=== PATIENT | female | born 1985 | race Caucasian/White ===

== ENCOUNTER 2016-03-10 14:53 | Emergency (ER) | payer MEDICAID ==
[~2016-03-10] VITALS: Ht 157.5 cm; Wt 56.7 kg
[~2016-03-10 14:53] MED LIST: ATIVAN2 M1 PO; CHLORPROMAZINE25 M1 PO; CIPRO500 MG; CLINDAMYCIN300 M1 PO; DOC-Q-LACE100 M1; DOXYCYCLINE100 M3 PO; EFFEXOR75 M1 PO; FENTANYL TD; FLAGYL250 M1 PO; HEMORRHOID OINTMENT; HYDROCORTISO; KEFLEX500 M1 PO; LEVAQUIN500 MG PO; NORCO; PENICILLIN; PHENERGAN12.5 M1 PO; PREDNISONE20 MG PO; SOMA350 M1 PO; SOMA350 MG PO; SYMBICORT1 AE1 IH; TERCONAZOLE; TRAMADOL HCL50 MG PO; VICODIN 5/500 M1 TAB PO; XANAX; XANAX0.5 M1 PO; XANAX1 MG PO; XANAX2 M1 PO; XANAX2 MG PO
[2016-03-10 16:30] VITALS: BP 113/48
--- NOTE | 2016-03-10 19:05 | NUR ---
PATIENT TO BED 04.
--- NOTE | 2016-03-10 19:29 | NUR ---
PATIENT PRESENTS TO ED WITH ANXIETY . PT STATES SHE HAS HAD ANXIETY WITH NAUSEA FOR THE PAST 3 DAYS. PT REPORTS NO PAIN AT THIS TIME . DENIES V/D; SKIN IS PINK/WARM/DRY; AAOX4 WITH EVEN AND STEADY GAIT; LUNGS CLEAR BL; HR EVEN AND REGULAR; PT DENIES ANY FEVER, CP, SOB, OR COUGH AT THIS TIME; PATIENT STATES PAIN OF 0/10 AT THIS TIME; VSS; PATIENT POSITIONED FOR COMFORT; HOB ELEVATED; BEDRAILS UP X2; BED DOWN. ER MD MADE AWARE OF PT STATUS.
[2016-03-10] MEDS ORDERED: LORazepam 2 MG/ML VIAL IM ONE (19:45)
--- NOTE | 2016-03-10 20:37 | NUR ---
Patient appears to be resting comfortably in bed. Vital Signs within normal limits. Respirations even and unlabored.
[2016-03-10 21:42] VITALS: BP 117/70
[2016-05-28] MEDS ORDERED: ATIVAN1 MG PO (22:08)
[2016-05-31] MEDS ORDERED: CYMBALTA30 MG PO (14:15)
[2016-05-31] MEDS ORDERED: ATARAX HCL25 MG PO ×2 (14:15→14:29)
[2016-05-31] MEDS ORDERED: ATIVAN1 MG PO (14:15)
== END 2016-03-10 21:43 | disposition home or self-care (01) ==
LOC: MED 14:59
DX: F41.9 Anxiety disorder, unspecified (principal); J45.909 Unspecified asthma, uncomplicated; Z88.2 Allergy status to sulfonamides; Z88.5 Allergy status to narcotic agent; Z88.6 Allergy status to analgesic agent; Z88.8 Allergy status to other drugs, medicaments and biological substances
CPT/HCPCS: 96372; 99284; J2060

== ENCOUNTER 2016-05-28 17:58 | Inpatient (IN) | payer MEDICAID ==
[~2016-05-28] VITALS: Ht 157.5 cm; Wt 50.4 kg
[2016-05-28 18:07] VITALS: BP 109/71
[2016-05-28] MEDS ORDERED: NACL 0.9% 1,000 ML IV ONE ×2 (18:20→19:45)
[2016-05-28] MEDS ORDERED: LORazepam 2 MG/ML VIAL IVP ONE ×2 (18:35→19:45)
[2016-05-28] MEDS ORDERED: LORazepam 2 MG/ML VIAL ONE (18:40)
--- NOTE | 2016-05-28 18:44 | NUR ---
PATIENT IS A 31 YO FEMALE BIB SELF FOR ANXIETY AND HX OF SEIZURES. AWAKE AND ALERT ON ARRIVAL HAD WITNESSED SEIZURE IN LOBBY SLIPPED TO FLOOR NO OBVIOUS INJURY. VERY SHORT POST ICTAL SEIZURE ARE WHOLE BODY STIFFENING AND THEN RELAXING. TAKEND TO BED 5 VIA WHEELCHAIR AND IV ESTABLISHED GIVEN IV ATIVAN.
[2016-05-28 18:45] LABS: BASOPHILS # (AUTO) 0.2 K/uL (0.00-0.22); BASOPHILS % (AUTO) 1.6 % (0.0-2.0); EOSINOPHILS # (AUTO) 0.4 K/uL (0-0.4); EOSINOPHILS % (AUTO) 4.2 % (0.0-4.0); HEMATOCRIT 43.4 % (36-48); HEMOGLOBIN 14.1 g/dL (12.0-16.0); LYMPHOCYTES # (AUTO) 4.1 K/uL (2.5-16.5); LYMPHOCYTES % (AUTO) 39.3 % (20.5-51.1); MEAN CORPUSCULAR HEMOGLOBIN 29 pg (27-31); MEAN CORPUSCULAR HGB CONC 33 g/dL (33-37); MEAN CORPUSCULAR VOLUME 89 fL (80-94); MONOCYTES # (AUTO) 0.7 K/uL (0.8-1.0); MONOCYTES % (AUTO) 6.9 % (1.7-9.3); NEUTROPHILS # (AUTO) 4.9 K/uL (1.8-7.7); PLATELET COUNT (AUTO) 272 K/uL (140-450); RED BLOOD CELL COUNT(AUTO) 4.86 MIL/uL (4.20-5.40); RED CELL DISTRIBUTION WIDTH 13.5 % (11.6-13.7); WHITE BLOOD COUNT (AUTO) 10.3 K/uL (4.8-10.8)
[2016-05-28 18:57] LABS: ANION GAP 24.5 (8-16); CALCIUM 9.5 mg/dL (8.5-10.1); CARBON DIOXIDE 19.2 mmol/L (21-32); CREATININE 1.2 mg/dL (0.6-1.3); POTASSIUM 3.7 mmol/L (3.5-5.1)
--- NOTE | 2016-05-28 19:00 | NUR ---
Dr. Briones evaluating patient at bedside.
[2016-05-28 19:01] LABS: PARTIAL THROMBOPLASTIN TIME 22.7 secs (22-35.6); PROTHROMBIN TIME 9.9 secs (10.8-13.4)
[2016-05-28 19:03] LABS: ALBUMIN 4.7 g/dL (3.4-5.0); BILIRUBIN,DIRECT 0.1 mg/dL (0.0-0.3); TOTAL BILIRUBIN 0.6 mg/dL (0.0-1.0); TOTAL PROTEIN, SERUM 8.3 g/dL (6.4-8.2)
--- NOTE | 2016-05-28 19:09 | NUR ---
RECEIVED REPORT FROM VANESSA CAMACHO. CAME IN DUE TO ANXIETY AND HAD EPISODE OF SEIZURE IN ER LOBBY. PERIPHERAL IV ON RIGHT ARM G20 RUNNING IVF OF NS WIDE OPEN.
--- NOTE | 2016-05-28 19:09 | NUR ---
GAVE REPORT TO JANICE LARRY
[2016-05-28 19:51] LABS: FREE T4 (FREE THYROXINE) 1.11 ng/dL (0.76-1.46); THYROID STIMULATING HORMONE 1.81 uIU/mL (0.34-3.76)
[2016-05-28 19:52] LABS: ACETAMINOPHEN < 0.5 ug/ml (10-30); SALICYLATE < 2.8 mg/dL (2.8-20.0)
--- NOTE | 2016-05-28 21:35 | NUR ---
PT TAKEN TO CT
--- NOTE | 2016-05-28 21:35 | NUR ---
PATIENT TAKEN TO CT BY THE PERSONAL CARE HOME ADMINISTRATOR PER LISSY.
--- NOTE | 2016-05-28 21:48 | NUR ---
CAME BACK FROM CT.
--- NOTE | 2016-05-28 21:51 | NUR ---
COMPLAINED OF HEADACHE, DR. IZAGUIRRE INFORMED.
[2016-05-28] MEDS ORDERED: LORA-476 PO (22:08)
[2016-05-28 22:15] LABS: APPEARANCE,URINE CLEAR (CLEAR); BILIRUBIN,URINE NEGATIVE (NEGATIVE); BLOOD, URINE NEGATIVE (NEGATIVE); COLOR,URINE YELLOW (YELLOW); LEUKOCYTE ESTERASE ,URINE NEGATIVE (NEGATIVE); NITRITE, URINE NEGATIVE (NEGATIVE); PH,URINE 6.5 (5.0-9.0); PROTEIN,URINE NEGATIVE (NEGATIVE); UGLUCOSE NEGATIVE (NEGATIVE); UROBILINOGEN,URINE 0.2 EU/dL (0.2 - 1)
[2016-05-28 22:26] LABS: BACTERIA,URINE FEW /HPF (None Seen); MUCUS,URINE 1+ /LPF (None Seen); RBC,URINE 0-3 /HPF (0-5); WBC,URINE 0-3 /HPF (0-5)
[2016-05-28 22:28] LABS: AMPHETAMINE, URINE NEG. ng/ml (NEG <=1000); BARBITURATE, URINE NEG. ng/ml (NEG <=200); BENZODIAZEPINE, URINE NEG. ng/mL (NEG <=200); CANNABINOID, URINE POS. ng/mL (NEG <=50); COCAINE, URINE NEG. ng/mL (NEG <=300); OPIATE, URINE NEG. ng/mL (NEG <=2000); PHENCYCLIDINE SCREEN,URINE NEG. ng/mL (NEG <=25)
--- NOTE | 2016-05-28 22:50 | NUR ---
Patient will be admitted to care of DR. BUNDY. Admited to TELEMETRY. Will go to room 117. Belongings list completed. Report to TRAESIS.
--- NOTE | 2016-05-28 22:55 | NUR ---
ADMITTED A PT FROM ER. TRANSPORTED VIA GURNEY, ACCOMPANIED BY , ER NURSE AND EMT. PT IS AAOX4, DENIES PAIN. ON ROOM AIR, NO S/S OF RESPIRATORY DISTRESS/DISCOMFORT NOTED. HAS NO EPISODES OF SEIZURE AT THIS TIME. SKIN CHECKING DONE, NO SKIN ISSUES. ID BAND UPDATED. ORIENTATION TO ROOM DONE. MRSA SWABBING DONE. V/S CHECKED. PLAN OF CARE DISCUSSED, VERBALIZED UNDERSTANDING. SAFETY MEASURES INITIATED, CALL LIGHT WITHIN REACH. WILL CONTINUE TO MONITOR.
[2016-05-28] MEDS ORDERED: ACETAMINOPHEN 325 MG TAB PO PRN (23:05)
--- NOTE | 2016-05-28 23:25 | NUR ---
EPISODES OF SEIZURES NOTED TO THE PT, AT BEDSIDE. INTERVAL OF EVERY 10-15 MINS, DURATION OF 15-30 SECONDS. SEIZURE PRECAUTIONS APPLIED AND SAFETY MEASURES INITIATED. NO INJURY NOTED AFTER THE SEIZURE.
[2016-05-28 23:39] LABS: CHOL/HDL RATIO 1.8 (1-4.5)
[2016-05-28] MEDS: NACL 0.9% 1,000 ML IV SCH (23:57)
[2016-05-28] MEDS: LORazepam 2 MG/ML VIAL IVP PRN (23:59)
[2016-05-29] VITALS (8 sets, daily range): BP systolic 88–104; BP diastolic 56–82
--- NOTE | 2016-05-29 | NUR ---
ORDERED ATIVAN WAS GIVEN. PROVIDED DRUG INFO, BENEFITS AND S/E. VERBALIZED UNDERSTANDING.
[2016-05-29] MEDS: HYDROcodone/APAP 5/325 MG 1 TAB TAB PO PRN (02:22)
--- NOTE | 2016-05-29 03:07 | NUR ---
EYES CLOSED, RESTING QUIETLY, BREATHING EVEN AND UNLABORED. NO SOB NOTED. CALL LIGHT WITHIN REACH.
[2016-05-29] MEDS: LORazepam 1 MG TAB PO SCH ×3 (04:26→21:52)
[2016-05-29] MEDS: LORazepam 2 MG/ML VIAL IVP PRN ×5 (05:18→21:53)
--- NOTE | 2016-05-29 05:27 | NUR ---
EPISODES OF SEIZURE NOTED TO THE PT. PRN ATIVAN WAS GIVEN.
[2016-05-29 06:37] LABS: BASOPHILS # (AUTO) 0.1 K/uL (0.00-0.22); BASOPHILS % (AUTO) 2.3 % (0.0-2.0); EOSINOPHILS # (AUTO) 0.3 K/uL (0-0.4); EOSINOPHILS % (AUTO) 4.9 % (0.0-4.0); HEMATOCRIT 31.1 % (36-48); HEMOGLOBIN 10.4 g/dL (12.0-16.0); LYMPHOCYTES # (AUTO) 2.4 K/uL (2.5-16.5); LYMPHOCYTES % (AUTO) 37.2 % (20.5-51.1); MEAN CORPUSCULAR HEMOGLOBIN 30 pg (27-31); MEAN CORPUSCULAR HGB CONC 33 g/dL (33-37); MEAN CORPUSCULAR VOLUME 89 fL (80-94); MONOCYTES # (AUTO) 0.4 K/uL (0.8-1.0); MONOCYTES % (AUTO) 6.4 % (1.7-9.3); NEUTROPHILS # (AUTO) 3.1 K/uL (1.8-7.7); NEUTROPHILS % (AUTO) 49.2 % (42.2-75.2); PLATELET COUNT (AUTO) 162 K/uL (140-450); RED CELL DISTRIBUTION WIDTH 13.6 % (11.6-13.7); WHITE BLOOD COUNT (AUTO) 6.3 K/uL (4.8-10.8)
[2016-05-29 06:54] LABS: CALCIUM 7.8 mg/dL (8.5-10.1); CARBON DIOXIDE 21.7 mmol/L (21-32); CREATININE 0.6 mg/dL (0.6-1.3); POTASSIUM 3.7 mmol/L (3.5-5.1)
[2016-05-29 07:04] LABS: ALCOHOL, BLOOD < 3 mg/dL (<3); MAGNESIUM 1.7 mg/dL (1.8-2.4)
--- NOTE | 2016-05-29 07:15 | NUR ---
ENDORSED REPORT TO DAY SHIFT NURSE FOR CONTINUITY OF CARE. PT IS IN STABLE CONDITION.
--- NOTE | 2016-05-29 07:16 | NUR ---
RECEIVED PT ASLEEP BUT EASILY AROUSABLE, WITH AT BEDSIDE, AAOX4 WITH NO S.S OF RESPIRATORY DISTRESS, WITH IV ACCESS ON RIGHT AC 20G INFUSING FLUIDS WELL, SKIN IS INTACT. DISCUSSED PLAN OF CARE, PT VERBALIZED UNDERSTANDING. SAFETY PRECAUTIONS ENFORCED. CALL LIGHT WITHIN REACH, WILL CONTINUE TO MONITOR.
[2016-05-29] MEDS: MULTIVITAMIN 1 TAB PO SCH (08:32)
[2016-05-29] MEDS: FOLIC ACID 1 MG TAB PO SCH (08:32)
[2016-05-29] MEDS: DOCUSATE SODIUM 100 MG GELCAP PO SCH (08:32)
[2016-05-29] MEDS: THIAMINE 100 MG TAB PO SCH (08:32)
--- NOTE | 2016-05-29 08:35 | NUR ---
DUE MEDS GIVEN, PT TOLERATED WELL.
--- NOTE | 2016-05-29 10:25 | NUR ---
DR BUNDY AT BEDSIDE
[2016-05-29] MEDS: NACL 0.9% 1,000 ML IV SCH (11:42)
--- NOTE | 2016-05-29 12:10 | NUR ---
STUDENT REPORTED THAT PT IS HAVING SEIZURE. WENT TO BEDSIDE WITH DR BAR, AWAKENED PT AND PT WAS FRIGHTENED UPON AWAKENING. PT WAS ABLE TO CONVERSATE WITH DR BAR, STATED THAT SHE COULD NOT REMEMBER WHAT HAPPENED. NO S/S OF RESPIRATORY DISTRESS/ WILL CONTINUE TO MONITOR
--- NOTE | 2016-05-29 12:40 | NUR ---
PT EATING, HAS GOOD APPETITE. CALL LIGHT WITHIN REACH, WILL CONTINUE TO MONITOR
[2016-05-29] MEDS ORDERED: MAG SULF 2000 MG/WATER PREMIX 50 ML IV ONE (12:50)
--- NOTE | 2016-05-29 14:01 | NUR ---
PT HEARD MOANING, FOUND WITH HANDS STIFF, AWAKENED PT. PT WAS STARTLED AND SAID SHE IS OKAY AND WENT BACK TO SLEEP. SPO2 AT 99%. WILL CONTINUE TO MONITOR.
--- NOTE | 2016-05-29 16:40 | NUR ---
PT ASLEEP WITH AT BEDSIDE. NO S/S OF DISTRESS. WILL CONTINUE TO MONITOR.
[2016-05-29] MEDS: DULoxetine 30 MG CAPDR PO SCH (17:38)
--- NOTE | 2016-05-29 18:10 | NUR ---
DR DASILVA AT BEDSIDE CYTOPATHOLOGY TECHNOLOGIST FOR DR. GRIDER
--- NOTE | 2016-05-29 18:20 | NUR ---
PT AWAKE WATCHING TV, JUST ATE DINNER, HAS GOOD APPETITE. NO COMPLAINTS AT THIS TIME. WILL CONTINUE TO MONITOR.
--- NOTE | 2016-05-29 19:19 | NUR ---
ENDORSED PT TO PATIENT SITTER NURSE IN STABLE CONDITION FOR CONTINUITY OF CARE
--- NOTE | 2016-05-29 19:20 | NUR ---
RECEIVED REPORT FROM MORNING SHIFT NURSE AT BEDSIDE, PT IS AAOX4, ABLE TO FOLLOW COMMANDS AND MAKE NEEDS KNOWN. DENIES PAIN, NO SOB/DISTRESS NOTED, BREATHING EVEN AND UNLABORED, ON RA. TELE MONITOR WITH SR. SOFT ABD WITH ACTIVE BOWEL SOUNDS. IV SITE TO RIGHT AC RUNNING WITH NC. AFEBRILE, SKIN IS INTACT, WARM AND DRY TO TOUCH. ABLE TO MOVE ALL EXTREMITIES, AMBULATE WITH ASSIST. EXPLAINED POC TO PT, PT VERBALIZED UNDERSTANDING, SAFETY MEASURE MAINTAINED, SEIZURE PRECAUTION MAINTAINED, CALL LIGHT WITHIN REACH, WILL CONTINUE TO MONITOR.
--- NOTE | 2016-05-29 21:00 | NUR ---
SCHEDULED MEDICATION GIVEN, PT TOLERATED WELL.
--- NOTE | 2016-05-29 21:50 | NUR ---
PT HAD A SEIZURE EPISODE WITH BLACKOUT AND STIFFNESS OF BODY FOR 30SEC, ATIVAN GIVEN, SYMPTOMS REDUCED.
[2016-05-30] VITALS: BP 83/59
--- NOTE | 2016-05-30 | NUR ---
PT C/O ANXIETY, BP 83/59, HR 81, O2 SAT 92%. EDUCATED AND WILL CONTINUE TO MONITOR. Addendum: 05/30/16 at 0048 by Tommie Wiseman RN PT ALSO C/O HEADACHE, AND DID NOT SLEEP WELL FOR 2 DAYS, DR. GREGOR ORTEGA, WAITING FOR CALL BACK.
--- NOTE | 2016-05-30 01:20 | NUR ---
DR. BUNDY CALLED BACK AND ORDERED NEW MEDICATION FOR PT, EDUCATED AND MEDICATED. WILL CONTINUE TO MONITOR.
[2016-05-30] MEDS: hydrOXYzine HCL 25 MG TAB PO PRN (01:26)
--- NOTE | 2016-05-30 02:10 | NUR ---
PT IS NAUSEA AND HAD VOMITED SMALL AMOUNT OF CLEAR EMESIS. AFTER THAT HAD A SEIZURE EPISODE WITH STIFFNESS OF BODY FOR 30 SEC. ZOFRAN GIVEN AND ATIVAN GIVEN, SEIZURE ACTIVITY REDUCED. VSS.
[2016-05-30] MEDS: LORazepam 2 MG/ML VIAL IVP PRN ×5 (02:15→23:52)
[2016-05-30] MEDS: ONDANSETRON 4 MG/2 ML VIAL IVP PRN ×2 (02:16→12:49)
[2016-05-30 04:00] VITALS: BP 96/61
--- NOTE | 2016-05-30 04:00 | NUR ---
PT IS ASLEEP IN BED, VSS.
[2016-05-30] MEDS: LORazepam 1 MG TAB PO SCH ×3 (05:00→21:26)
[2016-05-30 06:03] LABS: BASOPHILS # (AUTO) 0.1 K/uL (0.00-0.22); BASOPHILS % (AUTO) 1.7 % (0.0-2.0); EOSINOPHILS # (AUTO) 0.3 K/uL (0-0.4); EOSINOPHILS % (AUTO) 5.6 % (0.0-4.0); HEMATOCRIT 35.3 % (36-48); HEMOGLOBIN 11.8 g/dL (12.0-16.0); LYMPHOCYTES # (AUTO) 1.8 K/uL (2.5-16.5); LYMPHOCYTES % (AUTO) 31.8 % (20.5-51.1); MEAN CORPUSCULAR HEMOGLOBIN 30 pg (27-31); MEAN CORPUSCULAR HGB CONC 33 g/dL (33-37); MEAN CORPUSCULAR VOLUME 89 fL (80-94); MONOCYTES # (AUTO) 0.4 K/uL (0.8-1.0); MONOCYTES % (AUTO) 6.2 % (1.7-9.3); NEUTROPHILS # (AUTO) 3.1 K/uL (1.8-7.7); NEUTROPHILS % (AUTO) 54.7 % (42.2-75.2); PLATELET COUNT (AUTO) 178 K/uL (140-450); RED BLOOD CELL COUNT(AUTO) 3.98 MIL/uL (4.20-5.40); RED CELL DISTRIBUTION WIDTH 13.6 % (11.6-13.7); WHITE BLOOD COUNT (AUTO) 5.7 K/uL (4.8-10.8)
[2016-05-30 06:15] LABS: ANION GAP 13.4 (8-16); CALCIUM 8.5 mg/dL (8.5-10.1); CARBON DIOXIDE 24.6 mmol/L (21-32); CREATININE 0.7 mg/dL (0.6-1.3)
[2016-05-30 06:41] LABS: MAGNESIUM 2.1 mg/dL (1.8-2.4); PHOSPHORUS 4.2 mg/dL (2.5-4.9)
--- NOTE | 2016-05-30 07:10 | NUR ---
PT IS RESTING IN BED, NO CHANGE OF CONDITION AT THIS TIME, REPORT GIVEN TO MORNING SHIFT NURSE FOR CONTINUE OF CARE.
--- NOTE | 2016-05-30 07:19 | NUR ---
REPORT RECEIVED FROM SUPERINTENDENT MENAGERIE RN, PT RESTING QUIETLY IN BED WITH BOYFRIEND, RESP EVEN UNLABORED IN NAD, CALL ABREU WITHIN REACH, SZ PRECAUTIONS IN PLACE, PT ON SQUADRON WORKER, ALL OTHER SAFETY MEASURES MET, WILL CONTINUE TO MONITOR
[2016-05-30 08:00] VITALS: BP 92/53
--- NOTE | 2016-05-30 08:01 | NUR ---
PATIENT HAS BEEN SCREENED AND CATEGORIZED LOW NUTRITION RISK. PATIENT WILL BE SEEN WITHIN 7 DAYS OF ADMISSION. 06/04/[address]
[2016-05-30] MEDS: FOLIC ACID 1 MG TAB PO SCH (08:39)
[2016-05-30] MEDS: MULTIVITAMIN 1 TAB PO SCH (08:39)
[2016-05-30] MEDS: THIAMINE 100 MG TAB PO SCH (08:39)
[2016-05-30] MEDS: DOCUSATE SODIUM 100 MG GELCAP PO SCH (08:40)
[2016-05-30] MEDS: DULoxetine 30 MG CAPDR PO SCH (08:40)
--- NOTE | 2016-05-30 09:03 | NUR ---
PT APPEARS ANXIOUS WITH RAPID RR, STATES "I'M HAVING ANXIETY ATTACKS, I NEED ATIVAN", PT BP LOW 92/53, TRIED RELAXATION AND RESPIRATORY TECHNIQUES WITHOUT IMPROVEMENT, OK'D BY DR PINEDA TO GIVE PRN 1MG ATIVAN WITH BP OF 99/58 AT THIS TIME, BOYFRIEND AT BEDSIDE, CALL ABREU WITHIN REACH, SZ PRECAUTION IN PLACE, ALL OTHER SAFETY MEASURES MET, WILL CONTINUE TO MONITOR
--- NOTE | 2016-05-30 10:04 | NUR ---
PT RESTING QUIETLY IN BED, CALMLY STATES SHE "FEELS BETTER", REMAINS ON GUIDEMAN, SZ PRECAUTION, CALL ABREU WITHIN REACH, ALL SAFETY MEASURES MET, BOYFRIEND AT BEDSIDE, WILL CONTINUE TO MONITOR.
[2016-05-30] MEDS: NACL 0.9% 1,000 ML IV SCH (11:31)
--- NOTE | 2016-05-30 11:50 | NUR ---
PT RESTING WITH EYES CLOSED, RESP EVEN UNLABORED IN NAD, COLOR WNL, PT AROUSES TO VOICE, DENIES PAIN PAIN OR DISCOMFORT, CALM COOPERATIVE, BOYFRIEND REMAINS AT BEDSIDE, CALL ABREU AT BEDSIDE, SZ PRECAUTION, ALL SAFETY MEASURES MET, WILL CONTINUE TO MONITOR
[2016-05-30 12:00] VITALS: BP 96/60
--- NOTE | 2016-05-30 12:50 | NUR ---
PT SITTING UP FOR LUNCH, NOW AWAKE ALERT, SPEAKS CLEARLY AND PLEASANTLY, MAKES EYE CONTACT WITH SMILES, C/O NAUSEA, MEDICATED WITH PRN ZOFRAN, SCHEDULED PO ATIVAN GIVEN, WILL CONTINUE TO MONITOR
--- NOTE | 2016-05-30 15:04 | NUR ---
PT SITTING UP IN BED RESTING QUIETLY, RESP EVEN UNLABORED, SKIN COLOR WNL, DENIES ANY PAIN OR DISCOMFORT, NO IMMEDIATE NEEDS VOICED, BOYFRIEND AT BEDSIDE, REMAINS ON CARDISC MONITOR, SZ PRECAUTION CONTINUES, ALL SAFETY MEASURES ENSURED, WILL CONTINUE TO MONITOR
--- NOTE | 2016-05-30 15:48 | NUR ---
PT NOW WITHDRAWN, CURLED UP IN BED, BODY STIFF, STATES SHE IS HAVING ANXIETY ATTACK, PRN ATIVAN GIVEN AT THIS TIME, BP 105/68 NOW, BOYFRIEND REMAINS AT BEDSIDE, SZ PRECAUTION, CARDIAC MONITORING CONTINUES, ALL SAFETY MEASURES ENSURED, WILL CONTINUE TO MONITOR
[2016-05-30 16:00] VITALS: BP 105/68
--- NOTE | 2016-05-30 16:56 | NUR ---
PT AWAKE SITTING UP IN BED QUIETLY IN NAD, RESP EVEN UNLABORED, APPEARS COMFORTABLE, DENIES ANY IMMEDIATE NEEDS, CALL ABREU WITHIN REACH, SZ PRECAUTION,CARDIAC MONITORING CONTINUES, ALL SAFETY MEASURES IN PLACE, WILL CONTINUE TO MONITOR.
--- NOTE | 2016-05-30 18:00 | NUR ---
PT SITTING UP IN BED EATING DINNER, STATES "I FEEL BETTER", SMILING, IVF INFUSING, SITE CLEAR, BOYFRIEND AT BEDSIDE, SZ PRECAUTION, CARCDIAC MONITOR CONTINUES, ALL SAFETY MEASURES IN PLACE, WILL CONTINUE TO MONITOR
--- NOTE | 2016-05-30 19:24 | NUR ---
REPORT GIVEN TO PLASTIC PARTS FABRICATOR TRIMMER RN, PT REMAINS IN STABLE CONDITION.
--- NOTE | 2016-05-30 19:25 | NUR ---
RECEIVED REPORT FROM DAY RN FOR CONTINUITY OF CARE. PATIENT IS A&OX4, DISCUSSED PLAN OF CARE WITH PATIENT AND FAMILY MEMBER AT BEDSIDE, VERBALIZED UNDERSTANDING. SHIFT ASSESSMENT DONE, VS TAKEN, STABLE. NO S/S OF RESPIRATORY DISTRESS NOTED ON ROOM AIR. PATIENT DENIES PAIN AT THIS TIME. IV TO RT AC 20 GAUGE PATENT AND INFUSING FLUIDS WELL. SAFETY/SEIZURE PRECAUTIONS ENFORCED. CALL LIGHT WITHIN REACH. WILL CONTINUE TO MONITOR.
[2016-05-30 20:00] VITALS: BP 101/56
--- NOTE | 2016-05-30 20:41 | NUR ---
PT C/O ANXIETY, HAVING PANIC ATTACKS, VITAL SIGNS STABLE. ADMINISTERED ATIVAN PER MD ORDER. WILL CONTINUE TO MONITOR.
[2016-05-30] MEDS: HYDROcodone/APAP 5/325 MG 1 TAB TAB PO PRN (22:05)
--- NOTE | 2016-05-30 22:05 | NUR ---
PT C/O HEADACHE, MEDICATED PER MD ORDER. CALL LIGHT WITHIN REACH. WILL CONTINUE TO MONITOR.
--- NOTE | 2016-05-30 23:14 | NUR ---
NEW IV LINE INSERTION TO LT FA 22 GAUGE PATENT AND INFUSING FLUIDS WELL. VS TAKEN, STABLE.
[2016-05-31] VITALS: BP 95/61
[2016-05-31] MEDS: hydrOXYzine HCL 25 MG TAB PO PRN (00:49)
[2016-05-31] MEDS: ONDANSETRON 4 MG/2 ML VIAL IVP PRN ×3 (00:53→12:33)
--- NOTE | 2016-05-31 02:02 | NUR ---
SPOKE TO PATIENTS , GIVEN UPDATE. PT IS ASLEEP AT THIS TIME. NO S/S OF DISTRESS NOTED.
[2016-05-31] MEDS: LORazepam 2 MG/ML VIAL IVP PRN ×2 (03:35→08:11)
--- NOTE | 2016-05-31 03:35 | NUR ---
VS TAKEN, STABLE. PT HAVING ANXIETY ATTACKS, ADMINISTERED ATIVAN PER MD ORDER. WILL CONTINUE TO MONITOR.
[2016-05-31 04:00] VITALS: BP 95/68
[2016-05-31] MEDS: LORazepam 1 MG TAB PO SCH ×2 (05:07→12:33)
--- NOTE | 2016-05-31 05:07 | NUR ---
DUE MEDICATION ADMINISTERED, TOLERATED WELL. NO S/S OF DISTRESS NOTED.
[2016-05-31 06:51] LABS: BASOPHILS # (AUTO) 0.1 K/uL (0.00-0.22); BASOPHILS % (AUTO) 1.6 % (0.0-2.0); EOSINOPHILS # (AUTO) 0.3 K/uL (0-0.4); EOSINOPHILS % (AUTO) 4.7 % (0.0-4.0); HEMATOCRIT 32.7 % (36-48); HEMOGLOBIN 10.9 g/dL (12.0-16.0); LYMPHOCYTES # (AUTO) 2.2 K/uL (2.5-16.5); LYMPHOCYTES % (AUTO) 38.1 % (20.5-51.1); MEAN CORPUSCULAR HEMOGLOBIN 30 pg (27-31); MEAN CORPUSCULAR HGB CONC 33 g/dL (33-37); MEAN CORPUSCULAR VOLUME 89 fL (80-94); MONOCYTES # (AUTO) 0.4 K/uL (0.8-1.0); MONOCYTES % (AUTO) 6.5 % (1.7-9.3); NEUTROPHILS # (AUTO) 2.8 K/uL (1.8-7.7); NEUTROPHILS % (AUTO) 49.1 % (42.2-75.2); PLATELET COUNT (AUTO) 166 K/uL (140-450); RED BLOOD CELL COUNT(AUTO) 3.67 MIL/uL (4.20-5.40); RED CELL DISTRIBUTION WIDTH 13.3 % (11.6-13.7); WHITE BLOOD COUNT (AUTO) 5.8 K/uL (4.8-10.8)
--- NOTE | 2016-05-31 07:15 | NUR ---
ENDORSED PATIENT TO DAY RN FOR CONTINUITY OF CARE. PATIENT IS IN STABLE CONDITION.
[2016-05-31 07:16] LABS: ANION GAP 11.7 (8-16); CALCIUM 8.3 mg/dL (8.5-10.1); CARBON DIOXIDE 25.1 mmol/L (21-32); CREATININE 0.8 mg/dL (0.6-1.3); POTASSIUM 3.8 mmol/L (3.5-5.1)
--- NOTE | 2016-05-31 07:18 | NUR ---
REPORT RECEIVED FROM COMMUNICATIONS EXECUTIVE RN, PT AWAKE RESTING QUIETLY, RESP EVEN UNLABORED IN NAD, SKIN COLOR WNL, IVF INFUSING WELL, SITE CLEAR, NO C/O PAIN, PT REQUESTS ANXIETY MEDS, WILL MEDICATE APPROPRIATE, CALL ABREU WITHIN REACH, BED LOCKED IN LOW POSITION, SIDE RAILS UP X2, WILL CONTINUE TO MONITOR
[2016-05-31 07:29] LABS: MAGNESIUM 1.9 mg/dL (1.8-2.4)
[2016-05-31 08:00] VITALS: BP 98/59
[2016-05-31] MEDS: MULTIVITAMIN 1 TAB PO SCH (08:10)
[2016-05-31] MEDS: FOLIC ACID 1 MG TAB PO SCH (08:10)
[2016-05-31] MEDS: THIAMINE 100 MG TAB PO SCH (08:10)
[2016-05-31] MEDS: DOCUSATE SODIUM 100 MG GELCAP PO SCH (08:10)
[2016-05-31] MEDS: DULoxetine 30 MG CAPDR PO SCH (08:11)
--- NOTE | 2016-05-31 10:08 | NUR ---
PT RESTING IN BED. NO S/S OF ACUTE DISTRESS. PT DENIES PAIN. CALL LIGHT WITHIN REACH. SAFETY MEASURES ENSURED. WILL CONTINUE TO MONITOR.
[2016-05-31] MEDS: NACL 0.9% 1,000 ML IV SCH (11:31)
[2016-05-31 12:00] VITALS: BP 102/64
--- NOTE | 2016-05-31 13:50 | NUR ---
PT RESTING IN BED. NO S/S OF ACUTE DISTRESS. PT DENIES PAIN. CALL LIGHT WITHIN REACH. SAFETY MEASURES ENSURED. WILL CONTINUE TO MONITOR.
[2016-05-31] MEDS ORDERED: LORazepam 0.5 MG TAB PO SCH (14:10)
[2016-05-31] MEDS ORDERED: DULO30EC PO (14:15)
[2016-05-31] MEDS ORDERED: ATA25 PO ×2 (14:15→14:29)
[2016-05-31] MEDS ORDERED: LORA-476 PO (14:15)
[2016-05-31 14:35] VITALS: BP 102/64
--- NOTE | 2016-05-31 16:33 | NUR ---
DISCHARGE INSTRUCTION AND PRESCRIPTIONS GIVEN AND EXPLAINED TO PT AND , THEY BOTH EXPRESSED FULL UNDERSTANDING, IV DC'D, CATH TIP INTACT, BLEEDING CONTROLLED, PT SMILING CONVERSING PLEASANTLY, APPEARS COMFORTABLE, WITH GOOD SPIRITS, AMBULATES WITH STEADY GAIT, DC HOME NOW WITH .
[2016-05-31 16:38] VITALS: BP 100/60
== END 2016-05-31 16:30 | disposition home or self-care (01) | DRG 52 ==
LOC: MED 18:00 → MTU 22:14
PROVIDERS: ADMIT Student in an Organized Health Care Education/Training Program; ATTEND Student in an Organized Health Care Education/Training Program
DX: G92 Toxic encephalopathy (principal); E83.42 Hypomagnesemia; F41.0 Panic disorder [episodic paroxysmal anxiety]; F45.8 Other somatoform disorders; F41.1 Generalized anxiety disorder; F44.5 Conversion disorder with seizures or convulsions; D64.9 Anemia, unspecified; F12.90 Cannabis use, unspecified, uncomplicated; F17.210 Nicotine dependence, cigarettes, uncomplicated; Z72.89 Other problems related to lifestyle; Z88.6 Allergy status to analgesic agent; Z88.2 Allergy status to sulfonamides; Z88.8 Allergy status to other drugs, medicaments and biological substances
CPT/HCPCS: 36415; 70450; 80048; 80053; 80305; 81001; 82248; 83036; 83690; 83735; 83880; 84100; 84439; 84443; 85025; 85610; 85730; 87081; 93005; 96361; 96374; 96376; 99291; G0480; G0482; J2060; J2405; J3475; J7030

== ENCOUNTER 2016-06-07 12:05 | Emergency (ER) | payer MEDICAID ==
[~2016-06-07] VITALS: Ht 162.6 cm; Wt 54.4 kg
[~2016-06-07 12:05] MED LIST changes: +ATA25 PO; -ATIVAN2 M1 PO; -CHLORPROMAZINE25 M1 PO; -CIPRO500 MG; -CLINDAMYCIN300 M1 PO; -DOC-Q-LACE100 M1; -DOXYCYCLINE100 M3 PO; +DULO30EC PO; -EFFEXOR75 M1 PO; -FENTANYL TD; -FLAGYL250 M1 PO; -HEMORRHOID OINTMENT; -HYDROCORTISO; -KEFLEX500 M1 PO; -LEVAQUIN500 MG PO; +LORA-476 PO; -NORCO; -PENICILLIN; -PHENERGAN12.5 M1 PO; -PREDNISONE20 MG PO; -SOMA350 M1 PO; -SOMA350 MG PO; -SYMBICORT1 AE1 IH; -TERCONAZOLE; -TRAMADOL HCL50 MG PO; -VICODIN 5/500 M1 TAB PO; -XANAX; -XANAX0.5 M1 PO; -XANAX1 MG PO; -XANAX2 M1 PO; -XANAX2 MG PO
[2016-06-07 12:15] VITALS: BP 144/101
[2016-06-07] MEDS ORDERED: LORazepam 2 MG/ML VIAL IM ONE (12:30)
--- NOTE | 2016-06-07 12:32 | NUR ---
Patient wheelchair assisted to bed 4 at this time.
--- NOTE | 2016-06-07 12:41 | NUR ---
PATIENT PRESENTS TO ED WITH panic attack and hyperventilating . PT STATES . DENIES N/V/D; SKIN IS PINK/WARM/mild diaphoretic; AAOX4 WITH EVEN AND STEADY GAIT; LUNGS CLEAR BL; HR EVEN AND REGULAR; PT DENIES ANY FEVER, CP, SOB, OR COUGH AT THIS TIME; PATIENT STATES PAIN OF 0/10 AT THIS TIME; VSS; PATIENT POSITIONED FOR COMFORT; HOB ELEVATED; BEDRAILS UP X2; BED DOWN. ER MD MADE AWARE OF PT STATUS.
--- NOTE | 2016-06-07 12:45 | NUR ---
non rebreather mask applied---
--- NOTE | 2016-06-07 12:59 | NUR ---
non rebreather mask removed--pt is breathing wnl
[2016-06-07] MEDS ORDERED: traMADol 50 MG TAB PO ONE (13:25)
--- NOTE | 2016-06-07 13:37 | NUR ---
pt a/o x4 denies cp, no mg---full clear speech
[2016-06-07 13:38] VITALS: BP 112/70
== END 2016-06-07 13:38 | disposition home or self-care (01) ==
LOC: MED 12:05
DX: F41.9 Anxiety disorder, unspecified (principal); Z88.2 Allergy status to sulfonamides; Z88.6 Allergy status to analgesic agent; Z88.5 Allergy status to narcotic agent
CPT/HCPCS: 96372; 99284; J2060

== ENCOUNTER 2017-02-27 11:05 | Emergency (ER) | payer SELFPAY ==
[~2017-02-27] VITALS: Ht 162.6 cm; Wt 68.0 kg
[2017-02-27 11:11] VITALS: BP 138/73
--- NOTE | 2017-02-27 11:21 | NUR ---
Pt taken to bed 1.
--- NOTE | 2017-02-27 11:23 | NUR ---
32/F bib sister for meth ingestion. Pt is eratic, thrashing, screaming, unconsolable, disheveled, paranoid. Pt admits to using meth. Pt denies suicidal ideation or homoicidal tendencies. Patient AOX4, severely anxious and agitated. VSS. Sister at bedside.
--- NOTE | 2017-02-27 11:24 | NUR ---
Dr. Munoz at bedside.
[2017-02-27] MEDS ORDERED: HALOPERIDOL IM 5 MG/ML VIAL IM ONE (11:25)
[2017-02-27] MEDS ORDERED: LORazepam 2 MG/ML VIAL IM ONE (11:25)
--- NOTE | 2017-02-27 12:19 | NUR ---
Lab at bedside for blood draw.
--- NOTE | 2017-02-27 12:23 | NUR ---
Pt is much more relaxed and cooperative at this time. VSS.
[2017-02-27 12:38] LABS: BASOPHILS # (AUTO) 0.1 K/uL (0.00-0.22); BASOPHILS % (AUTO) 1.8 % (0.0-2.0); EOSINOPHILS # (AUTO) 0.6 K/uL (0-0.4); EOSINOPHILS % (AUTO) 7.8 % (0.0-4.0); HEMATOCRIT 35.2 % (36-48); HEMOGLOBIN 11.7 g/dL (12.0-16.0); LYMPHOCYTES # (AUTO) 1.8 K/uL (2.5-16.5); LYMPHOCYTES % (AUTO) 24.4 % (20.5-51.1); MEAN CORPUSCULAR HEMOGLOBIN 29 pg (27-31); MEAN CORPUSCULAR HGB CONC 33 g/dL (33-37); MEAN CORPUSCULAR VOLUME 87 fL (80-94); MONOCYTES # (AUTO) 0.5 K/uL (0.8-1.0); MONOCYTES % (AUTO) 6.2 % (1.7-9.3); NEUTROPHILS # (AUTO) 4.4 K/uL (1.8-7.7); NEUTROPHILS % (AUTO) 59.8 % (42.2-75.2); PLATELET COUNT (AUTO) 201 K/uL (140-450); RED BLOOD CELL COUNT(AUTO) 4.06 MIL/uL (4.20-5.40); RED CELL DISTRIBUTION WIDTH 11.9 % (11.6-13.7); WHITE BLOOD COUNT (AUTO) 7.4 K/uL (4.8-10.8)
--- NOTE | 2017-02-27 12:46 | NUR ---
Patient appears to be resting comfortably in bed. VSS. Warm blanket provided. Sister at bedside.
[2017-02-27 12:53] LABS: ANION GAP 14.3 (8-16); CARBON DIOXIDE 24.6 mmol/L (21-32); CHLORIDE 107 mmol/L (98-107); CREATININE 0.7 mg/dL (0.6-1.3); GFR ARICAN-AMERICAN 123 mL/min (>90); GLUCOSE 93 mg/dL (74-106); POTASSIUM 3.9 mmol/L (3.5-5.1); SODIUM SERUM 142 mmol/L (136-145); UREA NITROGEN, BLOOD 25 mg/dL (7-18)
[2017-02-27 12:57] LABS: ALBUMIN 3.8 g/dL (3.4-5.0); SALICYLATE < 2.8 mg/dL (2.8-20.0)
[2017-02-27 13:21] LABS: APPEARANCE,URINE HAZY (CLEAR); COLOR,URINE YELLOW (YELLOW)
[2017-02-27 13:22] LABS: BILIRUBIN,URINE NEGATIVE (NEGATIVE); BLOOD, URINE NEGATIVE (NEGATIVE); LEUKOCYTE ESTERASE ,URINE NEGATIVE (NEGATIVE); NITRITE, URINE NEGATIVE (NEGATIVE); PH,URINE 6.5 (5.0-9.0); UGLUCOSE NEGATIVE (NEGATIVE)
[2017-02-27 13:25] LABS: TOTAL BILIRUBIN 0.5 mg/dL (0.0-1.0)
[2017-02-27] MEDS ORDERED: GENTAMICIN OP 0.3% 10.5 MG/3.5 GM TUBE OP ONE (13:25)
[2017-02-27 13:26] LABS: ASPARTATE AMINOTRANSFERASE 20 U/L (15-37)
[2017-02-27 13:46] LABS: ACETAMINOPHEN < 0.5 ug/ml (10-30)
[2017-02-27 14:09] VITALS: BP 95/54
--- NOTE | 2017-02-27 14:09 | NUR ---
Patient discharged with v/s stable. Written and verbal after care instructions given and explained. Patient alert, oriented and verbalized understanding of instructions. Ambulatory with steady gait. All questions addressed prior to discharge. ID band removed. Patient advised to follow up with PMD. Rx of Gentamicin Sulfate 0.3% ophthalmic solution given. Patient educated on indication of medication including possible reaction and side effects. Opportunity to ask questions provided and answered.
[2017-02-27 15:05] LABS: BARBITURATE, URINE NEG. ng/ml (NEG <=200); BENZODIAZEPINE, URINE NEG. ng/mL (NEG <=200); CANNABINOID, URINE POS. ng/mL (NEG <=50); COCAINE, URINE NEG. ng/mL (NEG <=300); OPIATE, URINE NEG. ng/mL (NEG <=2000); PHENCYCLIDINE SCREEN,URINE NEG. ng/mL (NEG <=25)
== END 2017-02-27 14:09 | disposition home or self-care (01) ==
LOC: MED 11:05
DX: F29 Unspecified psychosis not due to a substance or known physiological condition (principal); F19.10 Other psychoactive substance abuse, uncomplicated; F41.9 Anxiety disorder, unspecified; H17.9 Unspecified corneal scar and opacity; Z79.899 Other long term (current) drug therapy; Z88.2 Allergy status to sulfonamides; Z88.5 Allergy status to narcotic agent; Z88.8 Allergy status to other drugs, medicaments and biological substances
CPT/HCPCS: 36415; 80053; 80305; 81003; 81025; 85025; 96372; 99284; G0480; G0482; J1630; J2060

== ENCOUNTER 2019-03-06 01:25 | Inpatient (IN) | payer MEDICAID ==
[~2019-03-06] VITALS: Ht 160 cm; Wt 49.9 kg
--- NOTE | 2019-03-06 01:25 | NUR ---
BIBA TO ER BED 3
[2019-03-06] MEDS ORDERED: AMMONIA AROMATIC 1 INHL INH ONE (01:29)
[2019-03-06] MEDS ORDERED: LORazepam 2 MG/ML VIAL IVP ONE (01:35)
[2019-03-06 01:48] VITALS: BP 103/71
--- NOTE | 2019-03-06 01:50 | NUR ---
34 YO BIBA FROM HOME FOR ALTERED MENTAL STATUS. FAMILY FOUND PT "PASSED OUT" ON COUCH IN [place] WITH "A DRUG PIPE" FOUND NEARBY. FAMILY STATES THEY PICKED HER UP FROM [facility] FOR ETOH AND HEROIN TREATMENT X 11 DAYS AGO. PT ARRIVES STUPOROUS, AROUSABLE TO PAINFUL STIMULI. SPO2 98% ON RA. BREATHING EVEN, UNLABORED. AIRWAY IS PATENT, PROTECTED. SKIN PINK, WARM, DRY. EYES SHUT TIGHT, EYES PERRL. PT MUMBLING, SHAKING HEAD BACK AND FORTH. UNABLE TO FOLLOW COMMANDS OR ANSWER QUESTIONS. MUSCLE SPASMS NOTED EVERY 2-3 MINUTES. PMH-- POLYSUBSTANCE ABUSE, ANXIETY
[2019-03-06 01:54] LABS: BASOPHILS # (AUTO) 0.1 K/uL (0.00-0.22); BASOPHILS % (AUTO) 0.5 % (0.0-2.0); EOSINOPHILS # (AUTO) 0.2 K/uL (0-0.4); EOSINOPHILS % (AUTO) 1.5 % (0.0-4.0); HEMATOCRIT 37.3 % (36-48); HEMOGLOBIN 12.3 g/dL (12.0-16.0); LYMPHOCYTES # (AUTO) 2.2 K/uL (2.5-16.5); LYMPHOCYTES % (AUTO) 22.2 % (20.5-51.1); MEAN CORPUSCULAR HEMOGLOBIN 29 pg (27-31); MEAN CORPUSCULAR HGB CONC 33 g/dL (33-37); MEAN CORPUSCULAR VOLUME 86.7 fL (80-94); MONOCYTES # (AUTO) 0.7 K/uL (0.8-1.0); NEUTROPHILS % (AUTO) 68.8 % (42.2-75.2); PLATELET COUNT (AUTO) 274 K/uL (140-450); RED CELL DISTRIBUTION WIDTH 14.6 % (11.6-13.7); WHITE BLOOD COUNT (AUTO) 10.1 K/uL (4.8-10.8)
--- NOTE | 2019-03-06 01:57 | NUR ---
# 16 FR straight catheter utilizing sterile technique. Immediate return of 100 ml clear, yellow urine noted. Bedside drainage bag placed below level of bladder. Urine sample collected and sent to lab. Pt tolerated procedure well.
[2019-03-06 02:05] LABS: APPEARANCE,URINE CLEAR (CLEAR); BILIRUBIN,URINE NEGATIVE (NEGATIVE); BLOOD, URINE NEGATIVE (NEGATIVE); COLOR,URINE YELLOW (YELLOW); LEUKOCYTE ESTERASE ,URINE NEGATIVE (NEGATIVE); NITRITE, URINE NEGATIVE (NEGATIVE); UGLUCOSE NEGATIVE (NEGATIVE)
--- NOTE | 2019-03-06 02:05 | NUR ---
PHLEB AT BEDSIDE DRAWING BLOOD.
--- NOTE | 2019-03-06 02:10 | NUR ---
MEDICATED WITH 1 MG IVP ATIVAN FOR AGITATION AND MUSCLE SPASMS. WILL REASSESS.
--- NOTE | 2019-03-06 02:15 | NUR ---
TAKEN TO CT VIA [facility] WITH ARELY, KRISTEL ACCOMPANYING.
[2019-03-06 02:19] LABS: ALBUMIN 3.4 g/dL (3.4-5.0); ANION GAP 11.8 (8-16); ASPARTATE AMINOTRANSFERASE 63 U/L (15-37); CARBON DIOXIDE 24.3 mmol/L (21-32); CHLORIDE 107 mmol/L (98-107); CREATININE 0.6 mg/dL (0.6-1.3); GFR ARICAN-AMERICAN 145 mL/min (>90); GLUCOSE 88 mg/dL (74-106); POTASSIUM 4.1 mmol/L (3.5-5.1); SALICYLATE < 2.8 mg/dL (2.8-20.0); SODIUM SERUM 139 mmol/L (136-145); TOTAL BILIRUBIN 0.4 mg/dL (0.0-1.0); UREA NITROGEN, BLOOD 18 mg/dL (7-18)
[2019-03-06 02:20] LABS: ACETAMINOPHEN < 0.5 ug/ml (10-30)
[2019-03-06 02:21] LABS: BARBITURATE, URINE NEG. ng/ml (NEG <=200); BENZODIAZEPINE, URINE NEG. ng/mL (NEG <=200); CANNABINOID, URINE NEG. ng/mL (NEG <=50); COCAINE, URINE NEG. ng/mL (NEG <=300); OPIATE, URINE NEG. ng/mL (NEG <=2000); PHENCYCLIDINE SCREEN,URINE NEG. ng/mL (NEG <=25)
--- NOTE | 2019-03-06 02:40 | NUR ---
RETURNS FROM CT VIA [facility].
--- NOTE | 2019-03-06 02:50 | NUR ---
SISTER SITTING AT BEDSIDE.
--- NOTE | 2019-03-06 03:00 | NUR ---
PT IS AROUSABLE TO VERBAL STIMULI AND LIGHT SHAKING. IS ABLE TO FOLLOW COMMANDS. PT SIGNS CONSENT FORM TO OBTAIN MEDICAL RECORDS FROM [facility] AND VERBALIZES UNDERSTANDING.
[2019-03-06] MEDS ORDERED: NACL 0.9% 1,000 ML IV ONE ×2 (03:05→08:00)
--- NOTE | 2019-03-06 03:05 | NUR ---
PT IS A/O TO PERSON, STATES "I'M AT THE HOSPITAL", STATES IS MONDAY OR MONDAY AND IS ABLE TO EXPLAIN EVENTS THAT LEAD HER TO THE ER. PT STATES SHE STARTED HAVING CP AND S/SX ANXIETY AT HOME AND SHE TOOK A HIT OF MARIJUANA AND HAD "A FEW DRINKS". DENIES ANY DRUG USE SINCE 02/18/19. PT STATES SHE TOOK FENTANYL ON 02/18/19 AND HAS HX OF METH AND HEROIN USE. Addendum: 03/06/19 at 0525 by [employer] ALSO REPORTS MUSCLE SPASMS STARTED TODAY.
--- NOTE | 2019-03-06 03:30 | NUR ---
C/O PAIN TO LEFT UPPER ARM AND TO PIV SITE. PIV APPEARS INFILTRATED; MILD SWELLING NOTED TO UPPER ARM, SURROUNDING AREA FEELS COOL AND SPONGY. PIV DISCONTINUED. NEW IV STARTED TO RIGHT FA. DR. SORIANO MADE AWARE.
[2019-03-06] MEDS ORDERED: ACETAMINOPHEN 325 MG TAB PO ONE (04:00)
--- NOTE | 2019-03-06 04:00 | NUR ---
PT CRYING, COMPLAINING OF BODY ACHES. DR. SORIANO AT BEDSIDE. MEDICATED WITH 650 MG PO TYLENOL FOR PAIN. WILL REASSESS.
--- NOTE | 2019-03-06 04:30 | NUR ---
PT INFORMED THAT SHE IS MEDICALLY CLEARED AND UP FOR DISCHARGE AND THAT SHE CAN START TO GET DRESSED. SISTER AT BEDSIDE TO ASSIST. PT STATES "MY BODY HURTS AND I WANT SOMETHING STRONGER." EXPLAINED THAT TYLENOL WILL HELP WITH BODY ACHES AND THAT SHE CAN ALTERNATE BETWEEN TYLENOL AND MOTRIN AT HOME PER DR. SORIANO. PT WAS ALSO SEEN AT [facility] TODAY AND WAS GIVEN RX FOR ATIVAN FOR MUSCLE SPASMS AND ANXIETY. PT SIGNED DISCHARGE PAPERWORK WITH NO ISSUES. MOTOR STRENGTH IN TACT. SISTER STATES THAT SHE WILL HELP HER GET DRESSED AND GET OUT OF BED.
--- NOTE | 2019-03-06 04:40 | NUR ---
PT HEARD CRYING LOUDLY AND MOANING. PT YELLS "GET THE FUCKING NURSE! I'M IN FUCKING PAIN!". DR. SORIANO AND PRIMARY RN AT BEDSIDE. PT SEEN WRITHING IN BED WITH MUSCLE SPASMS. PT RESPONDING TO QUESTIONS AND ABLE TO FOLLOW COMMANDS DURING EPISODES. DR. SORIANO SPEAKING WITH PT AND SISTER. SISTER STATES CONCERN FOR BRINGING PT BACK HOME. PT WILL BE ADMITTED FOR FURTHER EVALUATION.
[2019-03-06] MEDS ORDERED: LORazepam 2 MG/ML VIAL IM ONE (04:45)
[2019-03-06] MEDS ORDERED: NACL 0.9% 1,000 ML IV SCH (04:49)
[2019-03-06] MEDS ORDERED: ACETAMINOPHEN 325 MG TAB PO PRN (04:50)
[2019-03-06] MEDS ORDERED: ONDANSETRON 4 MG/2 ML VIAL IM/IVP PRN (04:50)
[2019-03-06] MEDS ORDERED: DOCUSATE SODIUM 100 MG GELCAP PO PRN (04:50)
--- NOTE | 2019-03-06 04:53 | NUR ---
MEDICATED WITH 2 MG IM ATIVAN FOR MUSCLE SPASMS AND AGITATION. WILL REASSESS.
--- NOTE | 2019-03-06 05:10 | NUR ---
DR. SHERIDAN AT BEDSIDE.
--- NOTE | 2019-03-06 05:36 | NUR ---
US AT BEDSIDE.
--- NOTE | 2019-03-06 05:54 | NUR ---
RESTING WITH EYES CLOSED AND SNORING HEARD. DEEP RESPIRATIONS NOTED. VSS.
--- NOTE | 2019-03-06 05:55 | NUR ---
PULP COOKER AT BEDSIDE FOR ABG.
--- NOTE | 2019-03-06 06:45 | NUR ---
RESTING QUIETLY WITH EYES CLOSED. VSS. AROUSABLE TO VERBAL STIMULI. ABLE TO FOLLOW SIMPLE COMMANDS.
[2019-03-06 06:56] LABS: PROTHROMBIN TIME 10.2 secs (10.8-13.4)
[2019-03-06 07:07] VITALS: BP 123/63
--- NOTE | 2019-03-06 07:07 | NUR ---
RECEIVED BEDSIDE REPORT FROM ED NURSE. PT RESTING IN BED. ABLE TO MAKE NEEDS KNOWN. RESPIRATIONS EVEN AND UNLABORED WITH NO SOB OR RESPIRATORY DISTRESS. SKIN WARM AND DRY TO TOUCH. IV SITE IN RFA 22G IS CLEAN, DRY, AND INTACT. TELE MONITOR APPLIED. MRSA SWAB PERFORMED. SAFETY MEASURES IN PLACE. WILL CONTINUE TO MONITOR
--- NOTE | 2019-03-06 07:09 | NUR ---
Patient will be admitted to care of Dr. sEcobar. Admited to Tele. Will go to room 104B. Belongings list completed. Report to JANICE Sanchez.
[2019-03-06 07:59] LABS: CHOL/HDL RATIO 1.8 (1-4.5); MAGNESIUM 1.5 mg/dL (1.8-2.4); PHOSPHORUS 3.5 mg/dL (2.5-4.9)
[2019-03-06 08:00] LABS: FREE T4 (FREE THYROXINE) 1.15 ng/dL (0.76-1.46); THYROID STIMULATING HORMONE 2.6 uIU/mL (0.34-3.74)
--- NOTE | 2019-03-06 10:11 | NUR ---
HOURLY ROUNDING. PT RESTING IN BED. ABLE TO MAKE NEEDS KNOWN. RESPIRATIONS EVEN AND UNLABORED WITH NO SOB OR RESPIRATORY DISTRESS. SKIN WARM AND DRY TO TOUCH. SAFETY MEASURES IN PLACE. WILL CONTINUE TO MONITOR
[2019-03-06] MEDS ORDERED: IBUPROFEN 600 MG TAB PO SCH (11:30)
[2019-03-06 12:00] VITALS: BP 119/87
--- NOTE | 2019-03-06 12:15 | NUR ---
PT IS AWARE OF DC TODAY. PT PREFERS TO LEAVE BEFORE LUNCH. WILL CONTINUE TO MONITOR
--- NOTE | 2019-03-06 13:38 | NUR ---
ADMINISTERED SCHED MED PRESCRIBED PER MD ORDER. PT TOLERATED WELL. MEDICATION EDUCATION PERFORMED. PT VERBALIZED UNDERSTANDING. SAFETY MEASURES IN PLACE. WILL CONTINUE TO MONITOR
[2019-03-06] MEDS ORDERED: clonazePAM 0.5 MG TAB PO SCH (13:45)
[2019-03-06 14:00] VITALS: BP 119/87
[2019-03-06] MEDS ORDERED: TRAZ-343 PO (14:02)
--- NOTE | 2019-03-06 14:32 | NUR ---
ZAK assessment/discharge plan High Risk DC Screen Yes Name: Dolly Garay Home Relationship: sister Pre-Admission Living Arrangements: Lives with Other Other: mother: Kaylie and patient's son Prior ADL Independent Current Home Health Name/Tel: N/A Current DME/02 Name/Tel: N/A Current Hospice Name/Tel: N/A Current Dialysis Name/Tel: N/A Healthcare Decision Maker: Patient Advance Directive No Information Taught: Advance Directive Community Resources Person Taught: Patient Teaching Tools: Community Resources Computer Generated Print Verbal Factors Affecting Learning: None Participation Level: Active Evaluation: Gestures Understanding Verbalizes Understanding Educator: ZAK Olsen Discipline: Case Mgt/Social Svcs Tentative Discharge Plan Summary: Patient is a 34 year old female admitted for muscle contractions. I met with patient at bedside. Patient alert and oriented x4. Patient lives at home with her family and plans to return home upon discharge. Patient does not have a pcp at this time. I emphasized to her the importance of following up with a physician post discharge and regularly. She verbalized understanding. Patient admitted to hx of alcohol and substance abuse. She denied current alcohol/substance abuse. She admitted to hx of anxiety. She is not taking medication for anxiety or receiving counseling/mental health services. She is planning to find an alcohol/substance abuse treatment program. I provided her with education on [email or web address] for community resources including list of low cost clinics, counseling/mental health services, and alcohol/substance abuse treatment programs. Scow Derrick Operator and/or Cistern Room Working Supervisor will follow up as needed. Signature: ZAK Olsen Date: Mar 06, 2019
--- NOTE | 2019-03-06 16:40 | NUR ---
WENT OVER DISCHARGE INSTRUCTIONS WITH PT. PT SIGNED APPROPRIATE FORMS. INSTRUCTED PT TO VISIT ED FOR ANY SIGNS OF DISTRESS. PT VERBALIZED UNDERSTANDING. ID BAND, ALLERGY BRACELET, AND INTACT IV CANNULA REMOVED. TELE MONITOR REMOVED. PT GATHERED BELONGINGS. PT REFUSED VACCINES. PT WHEELED OUT TO PRIVATE VEHICLE TO GO HOME. PT IS STABLE
== END 2019-03-06 16:17 | disposition home or self-care (01) | DRG 351 ==
LOC: MED 01:25 → MTU 05:01
PROVIDERS: ADMIT General Practice; ATTEND General Practice
DX: M62.40 Contracture of muscle, unspecified site (principal); G93.41 Metabolic encephalopathy; M62.838 Other muscle spasm; F19.10 Other psychoactive substance abuse, uncomplicated; R65.10 Systemic inflammatory response syndrome (SIRS) of non-infectious origin without acute organ dysfunction; E86.0 Dehydration; R74.0 Nonspecific elevation of levels of transaminase and lactic acid dehydrogenase [LDH]; R91.1 Solitary pulmonary nodule; Z88.5 Allergy status to narcotic agent; Z88.2 Allergy status to sulfonamides; Z88.8 Allergy status to other drugs, medicaments and biological substances; Z90.49 Acquired absence of other specified parts of digestive tract
CPT/HCPCS: 36415; 70450; 71045; 76705; 80053; 80305; 81003; 82140; 82150; 82550; 83036; 83605; 83615; 83690; 83735; 83880; 84100; 84134; 84439; 84443; 84484; 84703; 85025; 85610; 85730; 87040; 87086; 93005; 96361; 96372; 96374; 99285; C1758; G0480; G0482; J2060; Q0092

== ENCOUNTER 2019-03-24 04:05 | Inpatient (IN) | payer MEDICAID ==
[~2019-03-24] VITALS: Ht 157.5 cm; Wt 50.8 kg
[~2019-03-24 04:05] MED LIST changes: -ATA25 PO; -DULO30EC PO; -LORA-476 PO; +TRAZ-343 PO
[2019-03-24 04:20] VITALS: BP 98/58
--- NOTE | 2019-03-24 04:23 | NUR ---
TO LOBBY A/W BED AMBULATORY
--- NOTE | 2019-03-24 05:34 | NUR ---
PT AMBULATED TO BED #1.
--- NOTE | 2019-03-24 06:10 | NUR ---
34 YEAR OLD FEMALE BIBA COMPLAINS THAT SHE WAS HAVING SEIZURES THROUGHOUT THE DAY. PATIENT DENIES CHEST PAIN, HEADACHE. PATIENT AOX4, BREATHING EVEN AND UNLABORED. BED IN LOWEST POSITION, LOCKED, BED RAIL UPX1. ERMD MADE AWARE OF STATUS. SEIZURE PRECAUTIONS IN PLACE. PT PLACED ON BEDSIDE MONITOR. PMH - SEIZURES, ANXIETY ALLERGIES - SULFAS
--- NOTE | 2019-03-24 07:24 | NUR ---
REPORT GIVEN TO RONA CAMACHO, TRANSFER OF CARE AT THIS TIME
--- NOTE | 2019-03-24 07:42 | NUR ---
TO CT VIA [facility].
[2019-03-24] MEDS ORDERED: DOCUSATE SODIUM 100 MG GELCAP PO PRN (08:25)
[2019-03-24] MEDS ORDERED: ONDANSETRON 4 MG/2 ML VIAL IM/IVP PRN (08:25)
[2019-03-24] MEDS ORDERED: LEVE750T25 PO (08:27)
[2019-03-24] MEDS ORDERED: TOPI50TA PO (08:27)
[2019-03-24 08:30] LABS: BASOPHILS # (AUTO) 0.1 K/uL (0.00-0.22); BASOPHILS % (AUTO) 1.2 % (0.0-2.0); EOSINOPHILS # (AUTO) 0.1 K/uL (0-0.4); EOSINOPHILS % (AUTO) 2.2 % (0.0-4.0); HEMATOCRIT 31.3 % (36-48); LYMPHOCYTES # (AUTO) 1.7 K/uL (2.5-16.5); LYMPHOCYTES % (AUTO) 31.1 % (20.5-51.1); MEAN CORPUSCULAR HEMOGLOBIN 29 pg (27-31); MEAN CORPUSCULAR HGB CONC 35 g/dL (33-37); MEAN CORPUSCULAR VOLUME 83.4 fL (80-94); MONOCYTES # (AUTO) 0.4 K/uL (0.8-1.0); MONOCYTES % (AUTO) 7.8 % (1.7-9.3); NEUTROPHILS # (AUTO) 3.1 K/uL (1.8-7.7); NEUTROPHILS % (AUTO) 57.7 % (42.2-75.2); PLATELET COUNT (AUTO) 241 K/uL (140-450); RED BLOOD CELL COUNT(AUTO) 3.75 MIL/uL (4.20-5.40); RED CELL DISTRIBUTION WIDTH 14.6 % (11.6-13.7); WHITE BLOOD COUNT (AUTO) 5.4 K/uL (4.8-10.8)
[2019-03-24 08:55] LABS: ALBUMIN 3.3 g/dL (3.4-5.0); ANION GAP 13.5 (8-16); ASPARTATE AMINOTRANSFERASE 34 U/L (15-37); CARBON DIOXIDE 26.9 mmol/L (21-32); CHLORIDE 105 mmol/L (98-107); CREATININE 0.6 mg/dL (0.6-1.3); GFR ARICAN-AMERICAN 145 mL/min (>90); GLUCOSE 86 mg/dL (74-106); POTASSIUM 3.4 mmol/L (3.5-5.1); SODIUM SERUM 142 mmol/L (136-145); TOTAL BILIRUBIN 0.4 mg/dL (0.0-1.0); UREA NITROGEN, BLOOD 16 mg/dL (7-18)
[2019-03-24] MEDS ORDERED: levETIRAcetam 500 MG in NACL 0.9% 100 ML IV SCH (09:00)
[2019-03-24] MEDS ORDERED: POTASSIUM CHLORIDE 10 MEQ TABER PO SCH (09:04)
--- NOTE | 2019-03-24 09:30 | NUR ---
PT WAS ADMITITED TO TELE 122B. PT WAS SENT TO FLOOR BY LISSY IN STABLE CONDITION. REPORT GIVEN BEDSIDE TO FLOOR RN.
--- NOTE | 2019-03-24 09:30 | NUR ---
RECEIVED REPORT FROM ER NURSE. PT IS AWAKE AND ORIENTED. NO SIGNS OF DISTRESS. PT HAS IV ON LEFT AC 22G. TELE MONITOR ATTACHED. CALL LIGHT WITHIN PT'S REACH, BED ON LOW, SIDERAILS UP.
[2019-03-24 09:55] LABS: PROTHROMBIN TIME 10.9 secs (10.8-13.4)
[2019-03-24 09:58] LABS: MAGNESIUM 1.6 mg/dL (1.8-2.4); PHOSPHORUS 3.2 mg/dL (2.5-4.9); THYROID STIMULATING HORMONE 2.28 uIU/mL (0.34-3.74)
[2019-03-24] MEDS ORDERED: levETIRAcetam 1,000 MG in NACL 0.9% 100 ML IV SCH (10:00)
--- NOTE | 2019-03-24 10:30 | NUR ---
SCHEDULED MEDS GIVEN. PT TOLERATED WELL. WILL CONTINUE TO MONITOR.
[2019-03-24] MEDS: NACL 0.9% 1,000 ML IV SCH (10:47)
[2019-03-24] MEDS: ACETAMINOPHEN 325 MG TAB PO PRN ×2 (11:53→23:51)
--- NOTE | 2019-03-24 11:53 | NUR ---
PT IS COMPLAINING FOR HEADACHE /10. TYLENOL PO GIVEN. PT TOLERATED WELL
[2019-03-24] MEDS: TOPIRAMATE 25 MG TAB PO SCH ×2 (11:54→20:54)
[2019-03-24] MEDS ORDERED: MAG SULF 2000 MG/WATER PREMIX 50 ML IV SCH (15:00)
--- NOTE | 2019-03-24 15:39 | NUR ---
SCHEDULED MEDS GIVEN. PT IS IN BED, NO SIGNS OF DISTRESS. CALL LIGHT WITHIN PT'S REACH. INSTRUCTED PT REGARDING URINE SPECIMEN COLLECTION. PT VERBALIZED UNDERSTANDING. WILL CONTINUE TO MONITOR
[2019-03-24 16:00] VITALS: BP 108/67
--- NOTE | 2019-03-24 19:09 | NUR ---
REPORT GIVEN TO SURGICAL DRESSING MAKER NURSE FOR CONTINUITY OF CARE. PT IS STABLE. CALL LIGHT WITHIN PT'S REACH
--- NOTE | 2019-03-24 19:10 | NUR ---
RECEIVED BEDSIDE REPORT FROM DAY SHIFT NURSE. PATIENT IS AWAKE, ALERT, AND COOPERATIVE. RESPIRATION EVEN UNLABORED ON ROOM AIR. NO DISTRESS NOTED. SKIN IS WARM AND DRY. IV PATENT AND INTACT. PLAN OF CARE WAS DISCUSSED. ALL SAFETY MEASURES IN PLACE. BED IS AT LOW POSITION. CALL LIGHT WITHIN REACH AND VERBALIZES ITS USE. WILL CONTINUE TO MONITOR.
[2019-03-24 20:00] VITALS: BP 93/54
--- NOTE | 2019-03-24 20:22 | NUR ---
INITIAL ASSESSMENT DONE. VITALS WERE TAKEN. PATIENT IN STABLE CONDITION. NO DISTRESS NOTED. WILL CONTINUE TO MONITOR.
--- NOTE | 2019-03-24 20:54 | NUR ---
ALL SCHEDULED MEDS WERE GIVEN PER ORDER. NO ASE NOTED. WILL CONTINUE TO MONITOR.
[2019-03-24 20:59] LABS: APPEARANCE,URINE HAZY (CLEAR); BILIRUBIN,URINE NEGATIVE (NEGATIVE); BLOOD, URINE NEGATIVE (NEGATIVE); COLOR,URINE YELLOW (YELLOW); LEUKOCYTE ESTERASE ,URINE NEGATIVE (NEGATIVE); NITRITE, URINE NEGATIVE (NEGATIVE); UGLUCOSE NEGATIVE (NEGATIVE)
[2019-03-24] MEDS ORDERED: levETIRAcetam 500 MG TAB PO SCH (21:00)
[2019-03-24 21:05] LABS: BARBITURATE, URINE NEG. ng/ml (NEG <=200); BENZODIAZEPINE, URINE NEG. ng/mL (NEG <=200); CANNABINOID, URINE NEG. ng/mL (NEG <=50); COCAINE, URINE NEG. ng/mL (NEG <=300); OPIATE, URINE NEG. ng/mL (NEG <=2000); PHENCYCLIDINE SCREEN,URINE NEG. ng/mL (NEG <=25)
--- NOTE | 2019-03-24 22:35 | NUR ---
CHECKED PATIENT. PATIENT SLEEPING RESPIRATION EVEN UNLABORED ON ROOM AIR. NO DISTRESS NOTED. WILL CONTINUE TO MONITOR.
--- NOTE | 2019-03-24 23:52 | NUR ---
VITALS WERE TAKEN. PATIENT COMPLAINED OF HEADACHE 3/10. PRN PAIN MED ADMINISTER PER ORDER. WILL CONTINUE TO MONITOR.
[2019-03-25] VITALS: BP 104/65
[2019-03-25] MEDS: NACL 0.9% 1,000 ML IV SCH ×2 (01:03→12:22)
--- NOTE | 2019-03-25 02:30 | NUR ---
CHECKED PATIENT. PATIENT SLEEPING RESPIRATION EVEN UNLABORED ON ROOM AIR. NO DISTRESS NOTED. WILL CONTINUE TO MONITOR.
--- NOTE | 2019-03-25 03:52 | NUR ---
VITALS WERE TAKEN. PATIENT IN STABLE CONDITION. NO DISTRESS NOTED. WILL CONTINUE TO MONITOR.
[2019-03-25 04:00] VITALS: BP 90/57
--- NOTE | 2019-03-25 05:30 | NUR ---
PATIENT IS HAVING SEIZURE. PLACE PATIENT TO THE LEFT SIDE POSITION. TOOK VITALS. PATIENT BP 102/65 HR 120 SPO2 99% RA. ADMINISTER 1GM OF ATIVAN IV PUSH PER ORDER. SEIZURE LAST 10MINS. Addendum: 03/25/19 at 0729 by Parag Cool RN 1MG OF ATIVAN
[2019-03-25] MEDS ORDERED: LORazepam 2 MG/ML VIAL IVP PRN (05:35)
[2019-03-25] MEDS ORDERED: LORazepam 2 MG/ML VIAL ONE (05:37)
--- NOTE | 2019-03-25 05:40 | NUR ---
PATIENT IS HAVING ANOTHER SEIZURE. GAVE ANOTHER DOSE OF ATIVAN 1MG PER ODER. SEIZURE LAST 5MINS. PATIENT VITALS STABLE BP 105/58 HR 117 SPO2 98% RA.
[2019-03-25] MEDS: LORazepam 2 MG/ML VIAL IVP SCH ×2 (06:03→06:14)
--- NOTE | 2019-03-25 06:03 | NUR ---
PATIENT HAD ANOTHER EPISODE OF SEIZURE LASTED 3MINS. ADMINISTERED ANOTHER DOSE OF ATIVAN 1MG PER ORDER. WILL CONTINUE TO MONITOR.
--- NOTE | 2019-03-25 06:15 | NUR ---
PATIENT IS AWAKE AND RESPONSIVE. ABLE TO FOLLOW COMMAND. VITALS BP 103/60 HR 88 SPO2 97% RA. PATIENT RECEIVED TOTAL OF 3GM OF ATIVAN THROUGHOUT HER SEIZURE EPISODE PER ORDER. PATIENT HAD A 3 TOTAL ACTIVE TONIC CLONIC SEIZURE. PATIENT IS NOW STABLE. NO DISTRESS NOTED. WILL CONTINUE TO MONITOR. Addendum: 03/25/19 at 0728 by Parag Cool RN 3MG OF ATIVAN
[2019-03-25] MEDS ORDERED: LORazepam 2 MG/ML VIAL IVP SCH (06:30)
--- NOTE | 2019-03-25 06:30 | NUR ---
CHECKED PATIENT BLOOD SUGAR. PATIENT BLOOD SUGAR 87.
[2019-03-25 07:06] LABS: CHOL/HDL RATIO 2.1 (1-4.5)
--- NOTE | 2019-03-25 07:11 | NUR ---
1711: SEIZURE LASTING 15 SEC, B/P 106 HR 111 SPO2 99% 1717: SEIZURE LASTING 10SEC, B/P 112/66 112 SPO2 100% 1718: PT REFUSED ATIVAN 1729: SEIZURE LASTING 12 SEC, B/P 145/75 114 SPO2 100% 1730: PT AGREED TO MEDICATION, ATIVAN ADMINISTERED DR HAMPTON AT BEDSIDE AT THIS TIME TO ASSESS PT. PT IN STABLE CONDITION. Addendum: 03/25/19 at 1941 by Irma Lakhani RN WRONG TIME
--- NOTE | 2019-03-25 07:17 | NUR ---
ENDORSED PATIENT TO DAY SHIFT NURSE. PATIENT IN STABLE CONDITION
--- NOTE | 2019-03-25 07:18 | NUR ---
RECEIVED REPORT FROM POT ROOM TAPPER NURSE PEARL FOR CONTINUITY OF CARE. PT IN STABLE CONDITION. RESPIRATIONS EVEN AND UNLABORED, ROOM AIR. IV INTACT AND PATENT. SAFETY MEASURES IN PLACE. BED IN LOW POSITION. CALL LIGHT AT BEDSIDE. WILL CONTINUE TO MONITOR.
[2019-03-25 08:00] VITALS: BP 98/55
[2019-03-25 08:06] LABS: T4 (THYROXINE) 11.6 ug/dL (4.5-12.0)
[2019-03-25] MEDS: levETIRAcetam 1,000 MG in NACL 0.9% 100 ML IV SCH ×2 (08:42→22:11)
[2019-03-25] MEDS: TOPIRAMATE 25 MG TAB PO SCH ×2 (08:44→22:08)
--- NOTE | 2019-03-25 08:49 | NUR ---
GAVE ORDERED DUE MEDICATIONS AT THIS TIME. PT TOLERATED WELL
[2019-03-25] MEDS ORDERED: levETIRAcetam 500 MG TAB PO SCH (09:00)
--- NOTE | 2019-03-25 09:00 | NUR ---
PATIENT HAS BEEN SCREENED AND CATEGORIZED LOW NUTRITION RISK. PATIENT WILL BE SEEN WITHIN 7 DAYS OF ADMISSION. 03/30/[address]
--- NOTE | 2019-03-25 10:42 | NUR ---
PT REQUEST PHONE. GAVE PHONE TO PT, ORIENTED PT TO CALL PROCESS.
--- NOTE | 2019-03-25 11:18 | NUR ---
Fairing Man Note: Basic Screen: Yes High Risk DC Screen [place]: AURA CADENA [place] Relationship: SISTER Pre-Admission Living Arrangements: Lives with Other Prior ADL Independent Current Home Health Name/Tel: N/A Current DME/02 Name/Tel: N/A Current Hospice Name/Tel: N/A Current Dialysis Name/Tel: N/A Healthcare Decision Maker: Patient Advance Directive No Physician Orders for Life Sustaining Treatment Form No Patient/Family Have Educational Needs No Information Taught: Advance Directive Community Resources Person Taught: Patient Teaching Tools: Verbal Factors Affecting Learning: None Participation Level: Refused Needs Additional Education: No Discipline: Case Mgt/Social Svcs Tentative Discharge Plan/Destination: No Needs Identified Will require assistance post discharge: No Referred to Facility Assistant: No Tentative Discharge Plan Summary: Patient is a 34-year-old female admitted for seizure. Patient has PMHX of epilepsy. Patient was admitted from home where she lives with her mother and son. SW met with patient at bedside to verify demographics. Patient refused to complete assessment. Patient's tentative discharge plan is to return home. No further needs identified. Signature: ZAK Yen Date: Mar 25, 2019 Time: 11:
[2019-03-25] MEDS ORDERED: MECLIZINE 25 MG TAB PO PRN (11:25)
[2019-03-25 12:00] VITALS: BP 93/67
--- NOTE | 2019-03-25 12:26 | NUR ---
GAVE EXTRA PILLOW PER PT REQUEST AND STARTED NEW IVF AT THIS TIME. PT IN STABLE CONDITION. BED IN LOW POSITION. CALL LIGHT AT BEDSIDE. WILL CONTINUE TO MONITOR.
--- NOTE | 2019-03-25 14:25 | NUR ---
PT SLEEPING AT THIS TIME. RESPIRATIONS EVEN AND UNLABORED, ROOM AIR. BED IN LOW POSITION. BED ALARM ON. CALL LIGHT AT BEDSIDE. WILL CONTINUE TO MONITOR.
[2019-03-25] MEDS ORDERED: MAGNESIUM OXIDE 400 MG TAB PO SCH (14:30)
[2019-03-25 16:00] VITALS: BP 100/62
--- NOTE | 2019-03-25 17:11 | NUR ---
1711: SEIZURE LASTING 15 SEC, B/P 106 HR 111 SPO2 99% 1717: SEIZURE LASTING 10SEC, B/P 112/66 112 SPO2 100% 1718: PT REFUSED ATIVAN 1729: SEIZURE LASTING 12 SEC, B/P 145/75 114 SPO2 100% 1730: PT AGREED TO MEDICATION, ATIVAN ADMINISTERED DR HAMPTON AT BEDSIDE AT THIS TIME TO ASSESS PT. PT IN STABLE CONDITION.
[2019-03-25] MEDS: LORazepam 2 MG/ML VIAL IVP PRN (17:28)
--- NOTE | 2019-03-25 18:00 | NUR ---
SPONGE BATH, CHANGED LINENS AND GOWN DUE TO URINATION DURING SEIZURE. PT TOLERATED WELL. BED IN LOW POSITION. BED ALARM ON. CALL LIGHT AT BEDSIDE.
--- NOTE | 2019-03-25 19:24 | NUR ---
GAVE REPORT TO OBEY PALLET SORTER NURSE TO CONTINUITY OF CARE. PT IN STABLE CONDITION.
--- NOTE | 2019-03-25 19:25 | NUR ---
RECEIVED REPORT FORM DAIN CAMACHO DAYSHIFT NURSE AT BEDSIDE FOR CONTINUITY OF CARE, PT IN STABLE CONDITION.
--- NOTE | 2019-03-25 19:25 | NUR ---
RECEIVED REPORT FORM DAIN CAMACHO DAYSHIFT NURSE AT BEDSIDE FOR CONTINUITY OF CARE, PT IN STABLE CONDITION.
[2019-03-25 20:00] VITALS: BP 108/62
--- NOTE | 2019-03-25 20:00 | NUR ---
PT IN BED AOX4. ALL SEIZURE PRECAUTIONS IN PLACE. V/S FOLLOWS; T 98.9 P 122 R 17 B/P 108/62 02 100% PT IS SITTING UP IN BED WITH NO C/O VOICED. PT MD FLORES NOTIFIED OF PT HR, WILL CONTINUE TO MONITOR.
--- NOTE | 2019-03-25 21:30 | NUR ---
PT GIVEN SCHEDULED MEDS AT THIS TIME OF KEPPRA, TOPAMAX AND, HEPARIN. EDUCATION REGARDING MEDICATION PROVIDED AT BEDSIDE , PT VERBALIZED UNDERSTANDING. IV SITE INTACT LAC 22G IS SALINE LOCKED, RIGHT HAND 22G INTACT AND ASYMPTOMATIC RUNNING N/S AT 60MLS/HR. PT HEART RATE STILL SPIKING UP TO 130'S THEN COMING DOWN TO THE 111-119 THEN BACK UP TO THE 130'S. PT HOWEVER, IS SITTING IN BED QUIETLY. WILL CONTINUE TO MONITOR. PT SAYS SHE DOES FEEL SOME ANXIETY AND SOME CHEST HEAVINESS , BUT DECLINES ANY PAIN MEDICATION. WILL CONTINUE TO MONITOR, ALL SEIZURE AND FALLS PRECAUTIONS IN PLACE.
[2019-03-25] MEDS: ACETAMINOPHEN 325 MG TAB PO PRN (22:08)
--- NOTE | 2019-03-25 22:10 | NUR ---
PT C/O HEAD ACHE AND WAS GIVEN PO/PRN TYLENOL. ALL OTHER REQUESTED NEEDS ATTENDED BY STAFF AND CALL ABREU IN REACH. HEART RATE STAYING IN THE 110-119, MD FLORES MADE AWARE. IV SITE INTACT AND RUNNING N/S ORDERED. ALL ORDERED PRECAUTIONS IN PLACE.
--- NOTE | 2019-03-25 23:30 | NUR ---
PT BOYFRIEND CALLED AND ASKED IF HE COULD SEE HER BRIEFLY DUE TO HIM GOING OUT OF STATE. HE IS UNSURE OF WHEN HE WILL GET HERE AND IT MAY BE THE AM HOURS. CHARGE NURSE MADE AWARE.
[2019-03-26] VITALS: BP 93/67
[2019-03-26] MEDS: LORazepam 2 MG/ML VIAL IVP PRN ×4 (00:38→07:35)
[2019-03-26] MEDS ORDERED: LORazepam 2 MG/ML VIAL IVP ONE (00:50)
--- NOTE | 2019-03-26 01:00 | NUR ---
AT 0015, PT SAID SHE "FEELS WEIRD" AND THINKS ANOTHER SEIZURE IS COMING. PT STARTED TO HAVE A SEIZURE AT 0019, FULL BODY MOVEMENT AND FULL LIMB INVOLVEMENT. PT MONITORED FOR SAFETY. PT GIVEN IVP ATIVAN AT 0038. DUE TO CONTINUED SEIZURE ACTIVITY. PT WOULD APPEAR TO HAVE STOPPED HAVING A SEIZURE, BUT THEN WOULD START WITH SEIZURE ACTIVITY. PT AGAIN WAS GIVEN ATIVAN WHEN SEIZURE STARTED BACK UP AGAIN. MD RESIDENT DR. FLORES WAS MADE AWARE AND ORDERED A 2ND ROUND OF ATIVAN. ATIVAN WAS GIVEN AT 0053. PT STOPPED HAVING A SEIZURE AT 0055. NO INJURY NOTED.
--- NOTE | 2019-03-26 02:00 | NUR ---
PT IN BED SLEEPING SOUNDLY, NO S/S OF PAIN OR DISTRESS NOTED. HR DOWN TO 88. ALL FALLS PRECAUTIONS IN PLACE WELL [id number] PRECAUTIONS FREQUENT CHECKS RENDERED.
--- NOTE | 2019-03-26 03:50 | NUR ---
PT STARTED TO HAVE SEIZURES AGAIN AT 0340. SHE STARTED MOANING AND MOVING ARMS AND LEGS THEN STIFFING UP. PT WAS GIVEN IVP ATIVAN, WILL MONITOR FOR EFFECT.
[2019-03-26 04:00] VITALS: BP 100/54
--- NOTE | 2019-03-26 06:00 | NUR ---
PT HAD A VERY SMALL SEIZURE LASTING 30 SECONDS. LAST V/S FOLLOWS: T 97.9 P 112/R 18 B/P 95/51 02 99% ON ROOM AIR. ALL FALLS AND SEIZURE PRECAUTIONS IN PLACE.
[2019-03-26 06:34] LABS: ANION GAP 12.5 (8-16); CARBON DIOXIDE 24.2 mmol/L (21-32); CREATININE 0.7 mg/dL (0.6-1.3); POTASSIUM 3.7 mmol/L (3.5-5.1)
[2019-03-26 06:43] LABS: MAGNESIUM 1.8 mg/dL (1.8-2.4); PHOSPHORUS 3.7 mg/dL (2.5-4.9)
--- NOTE | 2019-03-26 07:30 | NUR ---
RECEIVED PT FROM PM SHIFT RN. PT WAS HAVING SEIZURE. PM SHIFT RN WAS AT BEDSIDE TO GIVE ATIVAN. PT C/O SHORT OF BREATH, O2 SATS 99%. PT REQUESTED O2 NC, EXPLAINED TO PT SHE DOES NOT NEED IT BUT PT INSISTED ON.GAVE PT 2L/MIN TO COMFORT PT. PT HAS IV TO LEFT AC # 22 AND RIGHT FA # 22 RUNNING 0.9 NS AT 60 CC/HR. ABD SOFT, NONTENDER. PT ABLE TO MOVE ALL HER EXTREMITIES. DENIES PAIN, NO FEVER. CALL LIGHT IN REACH, WILL CONTINUE TO MONITOR.
--- NOTE | 2019-03-26 07:35 | NUR ---
PT WAS TRYING TO INCREASE O2 LEVEL AND GRAB FACE MASK, EXPLAINED TO PT. PT VERBALIZED UNDERSTANDING.
--- NOTE | 2019-03-26 07:45 | NUR ---
PT STATED SHE FEELS BETTER. O2 IS NOT ON AT THIS TIME. O2 SATS 99%.
[2019-03-26 08:00] VITALS: BP 88/54
[2019-03-26 08:14] LABS: BASOPHILS # (AUTO) 0.1 K/uL (0.00-0.22); BASOPHILS % (AUTO) 1.8 % (0.0-2.0); EOSINOPHILS # (AUTO) 0.2 K/uL (0-0.4); EOSINOPHILS % (AUTO) 4.3 % (0.0-4.0); HEMATOCRIT 35.3 % (36-48); LYMPHOCYTES # (AUTO) 1.5 K/uL (2.5-16.5); LYMPHOCYTES % (AUTO) 41.3 % (20.5-51.1); MEAN CORPUSCULAR HEMOGLOBIN 29 pg (27-31); MEAN CORPUSCULAR HGB CONC 34 g/dL (33-37); MEAN CORPUSCULAR VOLUME 84.9 fL (80-94); MONOCYTES # (AUTO) 0.3 K/uL (0.8-1.0); MONOCYTES % (AUTO) 7.7 % (1.7-9.3); NEUTROPHILS # (AUTO) 1.6 K/uL (1.8-7.7); NEUTROPHILS % (AUTO) 44.9 % (42.2-75.2); PLATELET COUNT (AUTO) 234 K/uL (140-450); RED BLOOD CELL COUNT(AUTO) 4.15 MIL/uL (4.20-5.40); RED CELL DISTRIBUTION WIDTH 14.8 % (11.6-13.7); WHITE BLOOD COUNT (AUTO) 3.6 K/uL (4.8-10.8)
[2019-03-26] MEDS: TOPIRAMATE 25 MG TAB PO SCH (09:15)
[2019-03-26] MEDS: levETIRAcetam 1,000 MG in NACL 0.9% 100 ML IV SCH (09:15)
[2019-03-26] MEDS ORDERED: LORazepam 2 MG/ML VIAL IVP PRN (09:20)
[2019-03-26] MEDS: NACL 0.9% 1,000 ML IV SCH (10:23)
--- NOTE | 2019-03-26 10:30 | NUR ---
PT ASKED FOR BED BATH. BED BATH GIVEN BY STUDENT NURSE. PT FEELS SATISFIED .
[2019-03-26 12:00] VITALS: BP 102/69
--- NOTE | 2019-03-26 12:04 | NUR ---
ASSISTED PT TO BATH ROOM, PT HAS BEDSIDE COMMODE AT BEDSIDE BUT PT DOES NOT WANT TO USE BEDSIDE COMMODE. PER POTATO SORTER, PT AMBULATED TO BATHROOM YESTERDAY WITHOUT DIFFICULTY.
--- NOTE | 2019-03-26 12:17 | NUR ---
ASSISTED PT BACK TO HER BED WITHOUT INCIDENT. PT EATING LUNCH RIGHT NOW.
[2019-03-26] MEDS ORDERED: TOP25 PO (13:43)
[2019-03-26] MEDS ORDERED: LEVE1000 PO (13:43)
--- NOTE | 2019-03-26 14:05 | NUR ---
Candy Maker Helper Note: I met with patient at bedside. Patient stated she lives at home with her mother and would like to return home upon discharge. She told me she does not have any concerns regarding her living arrangement and does not need any community resources at this time.
--- NOTE | 2019-03-26 15:30 | NUR ---
pt's mother and son in unit. notified pt's mother we have D/C order. pt's mother stated Pt's sister can pick them up between 5-6 PM.
[2019-03-26 16:00] VITALS: BP 104/76
--- NOTE | 2019-03-26 17:00 | NUR ---
PT LEFT UNIT, AWAKE, ALERT.DENIES PAIN OR DISCOMFORT. DISCHARGE PAPER WORK SIGNED AND VERBALIZED UNDERSTANDING. ALL PERSONAL BELONGINGS WITH PT. IV REMOVED, TIP INTACT. WRIST BAND REMOVED. PT WALKED OUT OF UNIT IN STEADY GAIT WITH STABLE CONDITION. PT'S MOTHER AND SON WITH PT. PT'S SISTER IS WAITING PT IN PARKING LOT.
== END 2019-03-26 13:40 | disposition home or self-care (01) | DRG 53 ==
LOC: MED 04:05 → MTU 08:23 → UNDOADMIN 09:08 → UNDODISIN 03-26 16:43
PROVIDERS: ADMIT General Practice; ATTEND General Practice
DX: G40.909 Epilepsy, unspecified, not intractable, without status epilepticus (principal); E83.42 Hypomagnesemia; D64.9 Anemia, unspecified; F41.9 Anxiety disorder, unspecified; K52.9 Noninfective gastroenteritis and colitis, unspecified; E87.6 Hypokalemia; Z90.49 Acquired absence of other specified parts of digestive tract; Z88.5 Allergy status to narcotic agent; Z88.2 Allergy status to sulfonamides; Z88.8 Allergy status to other drugs, medicaments and biological substances; Z87.891 Personal history of nicotine dependence; Z91.14 Patient's other noncompliance with medication regimen
CPT/HCPCS: 36415; 70450; 71045; 80048; 80053; 80305; 81003; 81025; 82948; 83036; 83735; 83880; 84100; 84436; 84443; 85025; 85610; 85730; 87081; 99285; G0482; J1644; J1953; J2060; J3475; J7030

== ENCOUNTER 2019-03-28 10:50 | Emergency (ER) | payer MEDICAID ==
[~2019-03-28] VITALS: Ht 157.5 cm; Wt 50.8 kg
[~2019-03-28 10:50] MED LIST changes: +LEVE1000 PO; +LEVE750T25 PO; +TOP25 PO; +TOPI50TA PO
[2019-03-28 11:04] VITALS: BP 106/71
--- NOTE | 2019-03-28 11:09 | NUR ---
PT AMBULATES TO BED 1, SEIZURE PRECAUTION INITIATED BY JANICE AMAYA
--- NOTE | 2019-03-28 11:11 | NUR ---
Hema mohan in ED - 03/28/19 at 1112 by [email or web address] 34 y/o F presents to ER for dizziness, weakness and nausea s/p seizure activity last night
--- NOTE | 2019-03-28 11:12 | NUR ---
34 y/o F presents to ER for dizziness, weakness and nausea s/p seizure activity last night. Per pt she had multiple seizures last night, none that were witnessed. Pt took seizure medication Topamax and Keppra medication last night. Per pt her seizures are usually brought on by her anxiety. A&O x4. GCS 15. Pain level 6/10, aching/sharp pain from seizure activity. Pt reports jaw feeling sore. Denies oral trauma. Seizure Precautions initiated: HOB elevated, padded side rails up x2, bed in lowest position. ERMD made aware of pt status. Allergies: Sulfa Med hx: Seizures and Anxiety
[2019-03-28 11:55] LABS: BASOPHILS # (AUTO) 0.1 K/uL (0.00-0.22); BASOPHILS % (AUTO) 1.3 % (0.0-2.0); EOSINOPHILS # (AUTO) 0.2 K/uL (0-0.4); EOSINOPHILS % (AUTO) 4.6 % (0.0-4.0); HEMATOCRIT 32.4 % (36-48); HEMOGLOBIN 11.1 g/dL (12.0-16.0); LYMPHOCYTES # (AUTO) 1.3 K/uL (2.5-16.5); LYMPHOCYTES % (AUTO) 33.3 % (20.5-51.1); MEAN CORPUSCULAR HEMOGLOBIN 29 pg (27-31); MEAN CORPUSCULAR HGB CONC 34 g/dL (33-37); MONOCYTES # (AUTO) 0.4 K/uL (0.8-1.0); MONOCYTES % (AUTO) 9.4 % (1.7-9.3); NEUTROPHILS % (AUTO) 51.4 % (42.2-75.2); PLATELET COUNT (AUTO) 214 K/uL (140-450); RED BLOOD CELL COUNT(AUTO) 3.81 MIL/uL (4.20-5.40); RED CELL DISTRIBUTION WIDTH 15.3 % (11.6-13.7); WHITE BLOOD COUNT (AUTO) 3.9 K/uL (4.8-10.8)
[2019-03-28 12:12] LABS: ANION GAP 17.5 (8-16); CARBON DIOXIDE 21.8 mmol/L (21-32); CREATININE 0.8 mg/dL (0.6-1.3); POTASSIUM 3.3 mmol/L (3.5-5.1)
--- NOTE | 2019-03-28 12:39 | NUR ---
Pt resting in bed. Vital Signs Stable. Will continue to monitor.
--- NOTE | 2019-03-28 12:59 | NUR ---
Transfer of care and report given to JANICE Fontenot
--- NOTE | 2019-03-28 13:20 | NUR ---
PT IS LAYING IN BED, SIDE RAILS UP, PADDED RAILS IN PLACE. VSS.
--- NOTE | 2019-03-28 14:08 | NUR ---
DISCHARGE PAPER WORK READY FOR PT. VSS. WHEN DISCUSSING DISCHARGE PAPER WORK WITH PT, PT SQUEEZED EYES SHUT TIGHTLY AND REFUSED TO RESPOND OR ACKNOWELDGE DISCHARGE DIRECTIONS. SECURITY CALLED TO ASSIST PT OUT OF BED. PT ABLE TO GET OUT OF BED AND WALK TO LOBBY WITHOUT DISABILITY.
[2019-03-28 14:13] VITALS: BP 95/85
--- NOTE | 2019-03-28 14:13 | NUR ---
Patient discharged with v/s stable. Written and verbal after care instructions given and explained. Patient verbalized understanding. Ambulatory with steady gait. All questions addressed prior to discharge. Advised to follow up with PMD.
== END 2019-03-28 14:13 | disposition home or self-care (01) ==
LOC: MED 10:50
DX: R56.9 Unspecified convulsions (principal); Z79.899 Other long term (current) drug therapy; Z88.2 Allergy status to sulfonamides; Z88.5 Allergy status to narcotic agent; Z88.6 Allergy status to analgesic agent
CPT/HCPCS: 36415; 80048; 85025; 99283

== ENCOUNTER 2019-12-24 12:47 | Emergency (ER) | payer MEDICAID ==
[~2019-12-24] VITALS: Ht 157.5 cm; Wt 56.7 kg
[~2019-12-24 12:47] MED LIST changes: -LEVE750T25 PO; -TOPI50TA PO; -TRAZ-343 PO
[2019-12-24 12:55] VITALS: BP 117/73
--- NOTE | 2019-12-24 12:58 | NUR ---
Patient ambulated to bed 12. RN evaluating patient at bedside.
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
--- NOTE | 2019-12-24 13:12 | NUR ---
UA DIPPED, RESULTS CHARTED
--- NOTE | 2019-12-24 13:36 | NUR ---
[facility] CaLLED AND THEY ADV THAT THEY WILL SEND OUT AN OFFICER TO TAKE REPORT FROM PT
--- NOTE | 2019-12-24 15:24 | NUR ---
[facility] AT BEDSIDE
[2019-12-24 16:30] VITALS: BP 117/73
--- NOTE | 2019-12-24 16:31 | NUR ---
Patient discharged with v/s stable. Written and verbal after care instructions given and explained. Patient verbalized understanding. Ambulatory with steady gait. All questions addressed prior to discharge. Advised to follow up with PMD. PT TRANSPORTED TO ANOTHER FACILITY BY [facility] FOR TESTING PER THE REQUEST OF THE PT
== END 2019-12-24 16:31 | disposition home or self-care (01) ==
LOC: MED 12:47
DX: T74.21XA Adult sexual abuse, confirmed, initial encounter (principal); F15.11 Other stimulant abuse, in remission; Z79.899 Other long term (current) drug therapy; Z88.5 Allergy status to narcotic agent; Z88.2 Allergy status to sulfonamides; Z88.8 Allergy status to other drugs, medicaments and biological substances
CPT/HCPCS: 81002; 81025; 99282

== ENCOUNTER 2020-06-23 18:03 | Emergency (ER) | payer MEDICAID ==
[~2020-06-23] VITALS: Ht 157.5 cm; Wt 68.5 kg
[2020-06-23 18:07] VITALS: BP 131/100
--- NOTE | 2020-06-23 18:12 | NUR ---
Patient ambulated with steady gait to bed 3.
--- NOTE | 2020-06-23 18:20 | NUR ---
Dr. Painting is evaluating patient at bedside.
--- NOTE | 2020-06-23 18:20 | NUR ---
35 y/o F brought in from home with c/c generalized weakness x 2 weeks. Patient A&Ox4, ambulatory and states nausea, lightheadedness, weakness, and tachycardic x 2 weeks. Patient reports similar symptoms in the past, however, they would resolve on their own. Patient states symptoms persisted and wanted to be evaluated for her weakness/fatigue. Patient denies fever/chills, recent etoh/substance abuse, cough, chest pain, abdominal pain, back pain. Denies any meds prior to arrival. Patient reports 2 seizures in the past two weeks, states off seizure meds for past 5-6 months. Patient also reports these symptoms feel like withdrawal symptoms. Pt placed onto batch room technician showing tachycardic @ 112; all other VSS. Bed locked in lowest position, side rails x 1, call light in reach. PMH: Bipolar d/o, anxiety, anemia, seizures Meds: Seroquel 250mg, Remeron 15mg Allergies: Sulfa, Toradol, Sx: Denies
[2020-06-23] MEDS ORDERED: LORazepam 0.5 MG TAB PO ONE (18:45)
--- NOTE | 2020-06-23 18:50 | NUR ---
Lab at bedside.
--- NOTE | 2020-06-23 18:55 | NUR ---
EMT at bedside for EKG.
[2020-06-23] MEDS ORDERED: LORazepam 0.5 MG TAB ONE (19:01)
--- NOTE | 2020-06-23 19:01 | NUR ---
Dropped Ativan PO pill onto ground.
[2020-06-23 19:05] LABS: BASOPHILS % (AUTO) 0.7 % (0.0-2.0); EOSINOPHILS # (AUTO) 0.2 K/uL (0-0.4); EOSINOPHILS % (AUTO) 2.3 % (0.0-4.0); HEMATOCRIT 36.6 % (36-48); HEMOGLOBIN 12.8 g/dL (12.0-16.0); LYMPHOCYTES # (AUTO) 1.8 K/uL (2.5-16.5); LYMPHOCYTES % (AUTO) 24.9 % (20.5-51.1); MEAN CORPUSCULAR HEMOGLOBIN 31 pg (27-31); MEAN CORPUSCULAR HGB CONC 35 g/dL (33-37); MEAN CORPUSCULAR VOLUME 87.8 fL (80-94); MONOCYTES # (AUTO) 0.4 K/uL (0.8-1.0); MONOCYTES % (AUTO) 5.3 % (1.7-9.3); NEUTROPHILS # (AUTO) 4.7 K/uL (1.8-7.7); NEUTROPHILS % (AUTO) 66.8 % (42.2-75.2); PLATELET COUNT (AUTO) 197 K/uL (140-450); RED BLOOD CELL COUNT(AUTO) 4.17 MIL/uL (4.20-5.40); RED CELL DISTRIBUTION WIDTH 12.8 % (11.6-13.7); WHITE BLOOD COUNT (AUTO) 7.1 K/uL (4.8-10.8)
--- NOTE | 2020-06-23 19:11 | NUR ---
Report and transfer of care given to Ron RN.
[2020-06-23 19:17] LABS: BARBITURATE, URINE NEGATIVE ng/ml (NEG <=200); BENZODIAZEPINE, URINE NEGATIVE ng/mL (NEG <=200); CANNABINOID, URINE NEGATIVE ng/mL (NEG <=50); COCAINE, URINE NEGATIVE ng/mL (NEG <=300); OPIATE, URINE NEGATIVE ng/mL (NEG <=2000); PHENCYCLIDINE SCREEN,URINE NEGATIVE ng/mL (NEG <=25)
[2020-06-23 19:23] LABS: ALBUMIN 4.6 g/dL (3.4-5.0); ANION GAP 15.9 (8-16); CARBON DIOXIDE 24.1 mmol/L (21-32); CREATININE 0.9 mg/dL (0.6-1.3); TOTAL BILIRUBIN 0.4 mg/dL (0.0-1.0)
[2020-06-23] MEDS ORDERED: HYDR-1093 PO (19:51)
[2020-06-23] MEDS ORDERED: ONDA4ODT2 PO (19:51)
[2020-06-23] MEDS ORDERED: LEVE1000 PO (20:03)
[2020-06-23 20:13] VITALS: BP 112/60
--- NOTE | 2020-06-23 20:15 | NUR ---
Patient discharged with v/s stable. Written and verbal after care instructions given and explained. Patient alert, oriented and verbalized understanding of instructions. Ambulatory with steady gait. All questions addressed prior to discharge. ID band removed. Patient advised to follow up with PMD. Rx of HYDROXIZINE, ZOFRAN, KEPPRA given. Patient educated on indication of medication including possible reaction and side effects. Opportunity to ask questions provided and answered.
== END 2020-06-23 20:11 | disposition home or self-care (01) ==
LOC: MED 18:03
DX: F41.9 Anxiety disorder, unspecified (principal); R53.1 Weakness; Z88.2 Allergy status to sulfonamides; Z88.5 Allergy status to narcotic agent; Z88.8 Allergy status to other drugs, medicaments and biological substances
CPT/HCPCS: 36415; 80053; 80305; 81002; 81025; 84443; 85025; 93005; 99284

== ENCOUNTER 2020-07-11 16:00 | Emergency (ER) | payer MEDICAID ==
[~2020-07-11] VITALS: Ht 157.5 cm; Wt 69.9 kg
[~2020-07-11 16:00] MED LIST changes: +HYDR-1093 PO; +ONDA4ODT2 PO
--- NOTE | 2020-07-11 16:00 | NUR ---
Patient ambulated to bed 11. RN evaluating the patient at bedside.
--- NOTE | 2020-07-11 16:01 | NUR ---
LEONARDO Mccann is evaluating the patient at bedside.
--- NOTE | 2020-07-11 16:01 | NUR ---
SEIZURE PRECAUTION IMPEMENTED. 3 LEAD ECG PLACED AND PULSE OX.
[2020-07-11 16:04] VITALS: BP 126/66
[2020-07-11] MEDS ORDERED: LORazepam 2 MG/ML VIAL ONE (16:09)
[2020-07-11] MEDS ORDERED: LORazepam 2 MG/ML VIAL IVP ONE (16:10)
--- NOTE | 2020-07-11 16:20 | NUR ---
LAB AT BEDSIDE.
--- NOTE | 2020-07-11 16:22 | NUR ---
PT PLACED ON 2 L O2 VIA NC. SATTING 98%
--- NOTE | 2020-07-11 16:29 | NUR ---
35 Y/F BIB SELF C/O SEIZURE X 1 WEEK. PT REPORTS SHE HAD A SEIZURE LAST NIGHT THAT WAS UNWITNESSED. DENIES HEAD TRAUMA. PT REPORTS SHE HAD NAUSEA AND VOMITING THIS MORNING C SOB. PERRLA. PT DENIES ANY RECENT DRUG OR ALCOHOL USE, STATED LAST TIME WAS IN JANUARY. PT ALSO REPORTS SHE IS COMPLIANT WITH KEPPRA. PMH: SEIZURE, ANXIETY, BIPOLAR
[2020-07-11 16:58] LABS: BASOPHILS % (AUTO) 0.9 % (0.0-2.0); EOSINOPHILS # (AUTO) 0.1 K/uL (0-0.4); EOSINOPHILS % (AUTO) 2.5 % (0.0-4.0); HEMATOCRIT 35.6 % (36-48); HEMOGLOBIN 12.3 g/dL (12.0-16.0); LYMPHOCYTES # (AUTO) 1.6 K/uL (2.5-16.5); LYMPHOCYTES % (AUTO) 30.6 % (20.5-51.1); MEAN CORPUSCULAR HEMOGLOBIN 30 pg (27-31); MEAN CORPUSCULAR HGB CONC 35 g/dL (33-37); MEAN CORPUSCULAR VOLUME 87.9 fL (80-94); MONOCYTES # (AUTO) 0.3 K/uL (0.8-1.0); MONOCYTES % (AUTO) 5.2 % (1.7-9.3); NEUTROPHILS # (AUTO) 3.2 K/uL (1.8-7.7); NEUTROPHILS % (AUTO) 60.8 % (42.2-75.2); PLATELET COUNT (AUTO) 200 K/uL (140-450); RED BLOOD CELL COUNT(AUTO) 4.05 MIL/uL (4.20-5.40); RED CELL DISTRIBUTION WIDTH 12.7 % (11.6-13.7); WHITE BLOOD COUNT (AUTO) 5.2 K/uL (4.8-10.8)
--- NOTE | 2020-07-11 17:13 | NUR ---
PT WHEELED TO BATHROOM FOR URINE SAMPLE.
[2020-07-11 17:20] LABS: ANION GAP 17.6 (8-16); CARBON DIOXIDE 20.1 mmol/L (21-32); CREATININE 1.1 mg/dL (0.6-1.3); POTASSIUM 3.7 mmol/L (3.5-5.1)
[2020-07-11] MEDS ORDERED: ATA25 PO (17:38)
[2020-07-11 17:54] VITALS: BP 123/69
[2020-07-11 17:55] LABS: BARBITURATE, URINE NEGATIVE ng/ml (NEG <=200); BENZODIAZEPINE, URINE NEGATIVE ng/mL (NEG <=200); CANNABINOID, URINE NEGATIVE ng/mL (NEG <=50); COCAINE, URINE NEGATIVE ng/mL (NEG <=300); OPIATE, URINE NEGATIVE ng/mL (NEG <=2000); PHENCYCLIDINE SCREEN,URINE NEGATIVE ng/mL (NEG <=25)
--- NOTE | 2020-07-11 17:55 | NUR ---
Patient discharged with v/s stable. Written and verbal after care instructions given and explained. Patient alert, oriented and verbalized understanding of instructions. Ambulatory with steady gait. All questions addressed prior to discharge. ID band removed. Patient advised to follow up with PMD. Rx of ATARAX given. Patient educated on indication of medication including possible reaction and side effects. Opportunity to ask questions provided and answered. PT WILL BE PICKED UP BY FAMILY MEMBER.
== END 2020-07-11 17:55 | disposition home or self-care (01) ==
LOC: MED 16:00
DX: F41.9 Anxiety disorder, unspecified (principal); F31.9 Bipolar disorder, unspecified; Z88.2 Allergy status to sulfonamides; Z88.8 Allergy status to other drugs, medicaments and biological substances; Z88.5 Allergy status to narcotic agent; Z79.899 Other long term (current) drug therapy
CPT/HCPCS: 36415; 80048; 80305; 81002; 81025; 85025; 93005; 96374; 99284; J2060

== ENCOUNTER 2020-07-13 19:33 | Emergency (ER) | payer MEDICAID ==
[~2020-07-13] VITALS: Ht 157.5 cm; Wt 69.4 kg
[2020-07-13 19:33] VITALS: BP 132/71
[~2020-07-13 19:33] MED LIST changes: +ATA25 PO
--- NOTE | 2020-07-13 19:45 | NUR ---
Dr. Kendall examining patient.
--- NOTE | 2020-07-13 19:47 | NUR ---
PATIENT BIBA AND TAKEN TO ER BED 11.
--- NOTE | 2020-07-13 19:55 | NUR ---
PT BIBA FOR C/O ANXIETY AND INVOLUNTARY MUSCLE SPASMS X 2 DAYS. PER [facility] PT REPORTS SHE EXPERIENCED THIS YESTERDAY, BUT TODAY HAS GOTTEN WORSE. PT REPORTS SHE HAS STAYED IN BED SINCE. DENIES FALLS OR INJURY. PT REPORTED TO [facility] THAT THIS SAME THING HAPPENED LAST YEAR AND SHE WAS IN AN INDUCED ACOMA X 5 MONTHS. [facility] REPORTS BLOOD SUGAR 89. VSS. NOTED WITH INVOLUNTARY MUSCLES SPASMS. SIEZURE PRECAUTIONS IN PLACE. MED HX: BIPOLAR, SIEZURES, ANXIETY ALLERGIES: SEE LIST
[2020-07-13] MEDS ORDERED: LORazepam 1 MG TAB PO ONE (20:30)
--- NOTE | 2020-07-13 20:50 | NUR ---
LAB AT BEDSIDE.
--- NOTE | 2020-07-13 20:54 | NUR ---
INITIATED TELENEURO REQUEST PER DR. LOERA
--- NOTE | 2020-07-13 21:00 | NUR ---
EDUCATED PT REGARDING PO ATIVAN ORDER PER SARAHY. PT REPORTS SHE GETS VERY SLEEPY AFTER TAKING ATIVAN. WILL IMPLEMENT ORDER FOLLOWING NEURO/PSYCH TELEHEALTH INTERVIEWS PER PT REQUEST. ERMD MADE AWARE. WILL CONTINUE TO MONITOR.
[2020-07-13 21:04] LABS: BASOPHILS # (AUTO) 0.1 K/uL (0.00-0.22); BASOPHILS % (AUTO) 0.8 % (0.0-2.0); EOSINOPHILS # (AUTO) 0.2 K/uL (0-0.4); EOSINOPHILS % (AUTO) 2.8 % (0.0-4.0); HEMATOCRIT 34.5 % (36-48); HEMOGLOBIN 11.9 g/dL (12.0-16.0); LYMPHOCYTES # (AUTO) 1.5 K/uL (2.5-16.5); MEAN CORPUSCULAR HEMOGLOBIN 30 pg (27-31); MEAN CORPUSCULAR HGB CONC 35 g/dL (33-37); MEAN CORPUSCULAR VOLUME 88.3 fL (80-94); MONOCYTES # (AUTO) 0.3 K/uL (0.8-1.0); MONOCYTES % (AUTO) 5.4 % (1.7-9.3); NEUTROPHILS # (AUTO) 4.2 K/uL (1.8-7.7); PLATELET COUNT (AUTO) 231 K/uL (140-450); RED CELL DISTRIBUTION WIDTH 12.5 % (11.6-13.7); WHITE BLOOD COUNT (AUTO) 6.4 K/uL (4.8-10.8)
--- NOTE | 2020-07-13 21:19 | NUR ---
TELEPSYCH INITIATED PER DR. LOERA
[2020-07-13 21:25] LABS: ALBUMIN 4.4 g/dL (3.4-5.0); ANION GAP 24.6 (8-16); ASPARTATE AMINOTRANSFERASE 30 U/L (15-37); CARBON DIOXIDE 19.5 mmol/L (21-32); CHLORIDE 107 mmol/L (98-107); GFR ARICAN-AMERICAN 80 mL/min (>90); GLUCOSE 83 mg/dL (74-106); POTASSIUM 4.1 mmol/L (3.5-5.1); SODIUM SERUM 147 mmol/L (136-145); TOTAL BILIRUBIN 0.4 mg/dL (0.0-1.0); UREA NITROGEN, BLOOD 22 mg/dL (7-18)
--- NOTE | 2020-07-13 21:30 | NUR ---
PT NOTED WITHOUT INVOLUNTARY MUSCLE SPASMS AT THIS TIME. PT REPORTS FEELING BETTER. REPOSITIONED FOR COMFORT. WILL CONTINUE TO MONITOR.
--- NOTE | 2020-07-13 22:41 | NUR ---
TELEPSYCH DOCTOR SPOKE WITH PRIMARY RN Kota HANNON
--- NOTE | 2020-07-13 22:46 | NUR ---
SPOKE WITH DR. SAUCEDA, PSYCHOLOGIST. ANSWERED QUESTIOSN APPROPRIATELY. REQUESTED ERMD ORDER DEPAKOTE BLOOD LEVELS, ERMD MADE AWARE. PER DR. REYNOLDS HE WILL BE CALLING PT SOON FOR TELEHEALTH PSYCH INTERVIEW. PT MADE AWARE.
--- NOTE | 2020-07-13 22:47 | NUR ---
PER ERMD, NO ORDERS AVAILABLE IN SYSTEM FOR DEPAKOTE BLOOD LEVELS.
--- NOTE | 2020-07-13 22:58 | NUR ---
TELEPSYCH DOCTOR SPEAKING WITH PATIENT
[2020-07-13] MEDS ORDERED: LORazepam 1 MG TAB ONE (23:23)
--- NOTE | 2020-07-13 23:28 | NUR ---
TELEPSYCH DOCTOR CALLED BACK AND SPOKE WITH PRIMARY RN Kota HANNON
--- NOTE | 2020-07-13 23:28 | NUR ---
DR. SAUCEDA, PSYCH MD, CALLED BACK AND STATED HE WAS GOING TO CLEAR PATIENT FOR DISCHARGE. RECOMMENDED FOR PT TO KEEP APPT WITH PSYCHIATRIST 08/21 AND OUT PT NEURO APPT. SARAHY MADE AWARE. NO NEW ORDERS AT THIS TIME.
--- NOTE | 2020-07-13 23:41 | NUR ---
ERMD AT BEDSIDE.
--- NOTE | 2020-07-13 23:45 | NUR ---
PT NOTED WITHOUT ANY INVOLUNTARY MUSCLE SPASMS SINCE LAST NOTED TIME. PT REPORTS FEELING BETTER AFTER SPEAKING WITH TELEPSYCH MD'S. SARAHY MADE AWARE.
[2020-07-14 00:19] LABS: BARBITURATE, URINE NEGATIVE ng/ml (NEG <=200); BENZODIAZEPINE, URINE NEGATIVE ng/mL (NEG <=200); CANNABINOID, URINE NEGATIVE ng/mL (NEG <=50); COCAINE, URINE NEGATIVE ng/mL (NEG <=300); OPIATE, URINE NEGATIVE ng/mL (NEG <=2000); PHENCYCLIDINE SCREEN,URINE NEGATIVE ng/mL (NEG <=25)
[2020-07-14 00:28] VITALS: BP 104/71
--- NOTE | 2020-07-14 00:28 | NUR ---
Patient discharged with v/s stable. Written and verbal after care instructions given and explained. Patient verbalized understanding. Ambulatory with steady gait. All questions addressed prior to discharge. Advised to follow up with PMD. CONFIRMED PTS SISTER WILL BE PICKING HER UP. WORK NOTE PROVIDED BY ERMD PER PT REQUEST.
== END 2020-07-14 00:28 | disposition home or self-care (01) ==
LOC: MED 19:33
DX: R56.9 Unspecified convulsions (principal); F31.9 Bipolar disorder, unspecified; Z88.2 Allergy status to sulfonamides; Z88.8 Allergy status to other drugs, medicaments and biological substances; Z88.5 Allergy status to narcotic agent
CPT/HCPCS: 36415; 80053; 80173; 80305; 84702; 85025; 99285; G0482

== ENCOUNTER 2020-07-15 17:48 | Emergency (ER) | payer MEDICAID ==
[~2020-07-15] VITALS: Ht 160 cm; Wt 63.5 kg
--- NOTE | 2020-07-15 18:00 | NUR ---
Patient wheelchair assisted to bed 1
[2020-07-15] MEDS ORDERED: LORazepam 2 MG/ML VIAL ONE ×2 (18:04→18:08)
[2020-07-15] MEDS ORDERED: LORazepam 2 MG/ML VIAL IVP ONE (18:15)
[2020-07-15] MEDS ORDERED: LORazepam 2 MG/ML VIAL IM ONE (18:15)
[2020-07-15] MEDS ORDERED: LORazepam 1 MG TAB ONE (18:22)
[2020-07-15 18:37] VITALS: BP 110/70
--- NOTE | 2020-07-15 18:41 | NUR ---
35YO F C/O GENERALIZED WEAKNESS X 1 DAY. PT REPORTS CONVULSIONS AND SLURRING OF SPEECH YESTERDAY. DENIES LOC. DENIES VOMITING. DENIES NUMBNESS. PER PT, SHE WAS BROUGHT TO THE HOSPITAL DUE TO SEIZURES LAST 06/23 AND WAS PRESCRIBED WITH KEPPRA. PT TOOK LAST DOSE OF KEPPRA YESTERDAY. ACCORDING TO PT, HER SEIZURES ARE PROVOKED BY ANXIETY. IN ED, PT IS TACHYCARDIC AT 118 BPM. AOX4. CLEAR BREATH SOUNDS. SEIZURE PADS SECURED ON BOTH SIDES OF BED. ERMD MADE AWARE OF PT STATUS. MEDHX: SUBSTANCE ABUSE, SEIZURES (STARTED MAR 2019), ANXIETY, BIPOLAR MEDS: REMERON, KEPPRA, SEROQUEL, BENADRYL ALLERGY: SULFA
[2020-07-15 18:48] LABS: BASOPHILS % (AUTO) 0.6 % (0.0-2.0); EOSINOPHILS # (AUTO) 0.1 K/uL (0-0.4); EOSINOPHILS % (AUTO) 2.4 % (0.0-4.0); HEMATOCRIT 32.7 % (36-48); HEMOGLOBIN 11.3 g/dL (12.0-16.0); LYMPHOCYTES # (AUTO) 1.4 K/uL (2.5-16.5); LYMPHOCYTES % (AUTO) 25.1 % (20.5-51.1); MEAN CORPUSCULAR HEMOGLOBIN 31 pg (27-31); MEAN CORPUSCULAR HGB CONC 35 g/dL (33-37); MEAN CORPUSCULAR VOLUME 88.5 fL (80-94); MONOCYTES # (AUTO) 0.3 K/uL (0.8-1.0); NEUTROPHILS # (AUTO) 3.8 K/uL (1.8-7.7); NEUTROPHILS % (AUTO) 65.9 % (42.2-75.2); PLATELET COUNT (AUTO) 206 K/uL (140-450); RED BLOOD CELL COUNT(AUTO) 3.69 MIL/uL (4.20-5.40); RED CELL DISTRIBUTION WIDTH 12.4 % (11.6-13.7); WHITE BLOOD COUNT (AUTO) 5.7 K/uL (4.8-10.8)
--- NOTE | 2020-07-15 19:13 | NUR ---
REPORT GIVEN TO JANICE SOLIS. ALL CARES TRANSFERRED AT THIS TIME.
--- NOTE | 2020-07-15 19:14 | NUR ---
RECEIVED REPORT FROM ANIBAL CAMACHO FOR CONTINUITY OF CARE
[2020-07-15 19:15] LABS: ALBUMIN 4.2 g/dL (3.4-5.0); ANION GAP 16.4 (8-16); CARBON DIOXIDE 18.3 mmol/L (21-32); CREATININE 1.1 mg/dL (0.6-1.3); POTASSIUM 3.7 mmol/L (3.5-5.1); TOTAL BILIRUBIN 0.2 mg/dL (0.0-1.0)
--- NOTE | 2020-07-15 19:28 | NUR ---
URINE SAMPLE COLLECTED AND SENT TO LAB
[2020-07-15 19:41] LABS: BARBITURATE, URINE NEGATIVE ng/ml (NEG <=200); BENZODIAZEPINE, URINE POSITIVE ng/mL (NEG <=200); CANNABINOID, URINE NEGATIVE ng/mL (NEG <=50); COCAINE, URINE NEGATIVE ng/mL (NEG <=300); OPIATE, URINE NEGATIVE ng/mL (NEG <=2000); PHENCYCLIDINE SCREEN,URINE NEGATIVE ng/mL (NEG <=25)
[2020-07-15] MEDS ORDERED: levETIRAcetam 500 MG TAB PO ONE (19:50)
[2020-07-15 20:02] VITALS: BP 110/70
--- NOTE | 2020-07-15 20:02 | NUR ---
Patient discharged with v/s stable. Written and verbal after care instructions given and explained. Patient verbalized understanding. IV ACCESS AND ID BAND REMOVED. Ambulatory with steady gait. All questions addressed prior to discharge. Advised to follow up with PMD.
== END 2020-07-15 20:02 | disposition home or self-care (01) ==
LOC: MED 17:48
DX: R56.9 Unspecified convulsions (principal); Z88.2 Allergy status to sulfonamides; Z88.5 Allergy status to narcotic agent; Z88.8 Allergy status to other drugs, medicaments and biological substances
CPT/HCPCS: 36415; 80053; 80305; 85025; 96372; 96374; 99284; J2060

== ENCOUNTER 2020-09-07 12:34 | Emergency (ER) | payer MEDICAID ==
[~2020-09-07] VITALS: Ht 157.5 cm; Wt 63.5 kg
--- NOTE | 2020-09-07 12:55 | NUR ---
Patient witnessed with full body shaking activity. Able to follow verbal commands and answer A&Ox4 qusetions with full body shaking. (-) hypoxia, oral trauma noted.
--- NOTE | 2020-09-07 13:17 | NUR ---
LABS DRAWN BEDSIDE AND GIVEN TO CASE MANAGERS
[2020-09-07 13:18] VITALS: BP 118/83
[2020-09-07] MEDS: NACL 0.9% 1,000 ML IV ONE (13:18)
--- NOTE | 2020-09-07 13:26 | NUR ---
35 FEMALE WITH C/O OF SEIZURES. PT STATES SHE TOOK HER HR AT HOME ABOUT 1 HR AGO AND "IT READ 130 BPM AT HOME." PT WAS CONCERNED AND CAME IN DUE TO HR AND STARTED TO EXPERIENCE SEZIURE LIKE ACTIVITY IN [facility]. PT IS ALERT, TALKING, AND AWAKE DURING SEIZURE. PMH: ANXIETY, BIPOLAR, SUBSTANCE ABUSE, SEIZURE ALLERGIES" SULFA, KETOROLAC, MORPHINE, ZIPRASIDONE, -MYCINS
[2020-09-07 13:38] LABS: BASOPHILS # (AUTO) 0.1 K/uL (0.00-0.22); BASOPHILS % (AUTO) 0.8 % (0.0-2.0); EOSINOPHILS # (AUTO) 0.1 K/uL (0-0.4); EOSINOPHILS % (AUTO) 1.5 % (0.0-4.0); HEMATOCRIT 36.7 % (36-48); HEMOGLOBIN 12.4 g/dL (12.0-16.0); LYMPHOCYTES # (AUTO) 2.5 K/uL (2.5-16.5); LYMPHOCYTES % (AUTO) 26.4 % (20.5-51.1); MEAN CORPUSCULAR HEMOGLOBIN 31 pg (27-31); MEAN CORPUSCULAR HGB CONC 34 g/dL (33-37); MONOCYTES # (AUTO) 0.6 K/uL (0.8-1.0); MONOCYTES % (AUTO) 6.3 % (1.7-9.3); NEUTROPHILS # (AUTO) 6.1 K/uL (1.8-7.7); PLATELET COUNT (AUTO) 301 K/uL (140-450); RED BLOOD CELL COUNT(AUTO) 4.07 MIL/uL (4.20-5.40); RED CELL DISTRIBUTION WIDTH 12.7 % (11.6-13.7); WHITE BLOOD COUNT (AUTO) 9.3 K/uL (4.8-10.8)
[2020-09-07] MEDS: diphenhydrAMINE 50 MG/ML VIAL IVP ONE (13:50)
[2020-09-07 13:52] LABS: ANION GAP 21.3 (8-16); CARBON DIOXIDE 19.1 mmol/L (21-32); CREATININE 1.4 mg/dL (0.6-1.3); POTASSIUM 3.4 mmol/L (3.5-5.1); TOTAL BILIRUBIN 0.3 mg/dL (0.0-1.0)
--- NOTE | 2020-09-07 14:24 | NUR ---
ER MD DR. KHANNA BEDSIDE SPEAKING WITH PT
[2020-09-07] MEDS: LORazepam 1 MG TAB PO ONE (14:33)
--- NOTE | 2020-09-07 15:06 | NUR ---
PT CURRENTLY RESTING IN BED WITH EYES CLOSED. EQUAL CHEST RISE AND FALL NOTED. BED IN LOWEST POSITION WITH SIDERAIL X2 UP AND LOCKED. VITAL SIGNS STABLE. WILL CONTINUE TO MONITOR
[2020-09-07 15:35] VITALS: BP 109/72
--- NOTE | 2020-09-07 15:36 | NUR ---
Patient discharged with v/s stable. Written and verbal after care instructions ABOUT NON-EPILEPTIC SEZIURES given and explained. Patient verbalized understanding. Ambulatory with steady gait. All questions addressed prior to discharge. Advised to follow up with PMD.
== END 2020-09-07 15:31 | disposition home or self-care (01) ==
LOC: MED 12:34
DX: R25.9 Unspecified abnormal involuntary movements (principal); Z79.899 Other long term (current) drug therapy; Z88.2 Allergy status to sulfonamides; Z88.5 Allergy status to narcotic agent; Z88.8 Allergy status to other drugs, medicaments and biological substances
CPT/HCPCS: 36415; 80053; 81002; 81025; 84703; 85025; 96361; 96374; 99283; J1200; J7030

== ENCOUNTER 2020-09-15 14:35 | Emergency (ER) | payer MEDICAID ==
[~2020-09-15] VITALS: Ht 157.5 cm; Wt 63.5 kg
--- NOTE | 2020-09-15 14:35 | NUR ---
Patient BIBA to bed 6 at this time.
[2020-09-15 14:44] VITALS: BP 127/74
--- NOTE | 2020-09-15 14:44 | NUR ---
DR. FLOOD BEDSIDE EVALUATING PT
--- NOTE | 2020-09-15 14:45 | NUR ---
35 FEMALE BIBA DUE TO SEIZURE LIKE ACTIVITY. PER EMS PT CALLED "DUE TO PT HAVING A SEIZURE AROUND 1420." PT IS CURRENTLY HAVING "SEIZURE LIKE" ACTIVITY WHILE FULLY ALERT, ANSWERING QUESTIONS, AND RESPONSIVE TO QUESTIONS. PMH: SEIZURES, ANXIETY ALLERGIES: SULFA, KETOROLAC
[2020-09-15] MEDS ORDERED: NACL 0.9% 1,000 ML IV ONE (14:50)
--- NOTE | 2020-09-15 15:00 | NUR ---
LAB BEDSIDE COLLECTING BLOOD WORK FROM PT
--- NOTE | 2020-09-15 15:18 | NUR ---
UA COLLECTED BEDSIDE AND HANDED TO STAFFING COORDINATOR
[2020-09-15 15:42] LABS: EOSINOPHILS # (AUTO) 0.1 K/uL (0-0.4); HEMOGLOBIN 10.4 g/dL (12.0-16.0); LYMPHOCYTES # (AUTO) 1.3 K/uL (2.5-16.5); LYMPHOCYTES % (AUTO) 27.5 % (20.5-51.1); MEAN CORPUSCULAR HEMOGLOBIN 31 pg (27-31); MEAN CORPUSCULAR HGB CONC 35 g/dL (33-37); MEAN CORPUSCULAR VOLUME 88.4 fL (80-94); MONOCYTES # (AUTO) 0.4 K/uL (0.8-1.0); MONOCYTES % (AUTO) 8.5 % (1.7-9.3); PLATELET COUNT (AUTO) 205 K/uL (140-450); RED CELL DISTRIBUTION WIDTH 12.6 % (11.6-13.7); WHITE BLOOD COUNT (AUTO) 4.9 K/uL (4.8-10.8)
[2020-09-15 15:59] LABS: ALBUMIN 4.4 g/dL (3.4-5.0); ANION GAP 17.1 (8-16); CARBON DIOXIDE 22.5 mmol/L (21-32); CREATININE 0.9 mg/dL (0.6-1.3); POTASSIUM 3.6 mmol/L (3.5-5.1); TOTAL BILIRUBIN 0.2 mg/dL (0.0-1.0)
--- NOTE | 2020-09-15 16:44 | NUR ---
PT CURRENTLY RESTING WITH EYES COVERED WITH SWEATER. VITAL SIGNS STABLE. BED IN LOWEST POSITION WITH SIDERAIL X2 UP. SEIZURE PADS STILL IN PLACE. WILL CONTINUE TO MONITOR
[2020-09-15 16:53] LABS: APPEARANCE,URINE HAZY (CLEAR); BILIRUBIN,URINE NEGATIVE (NEGATIVE); BLOOD, URINE NEGATIVE (NEGATIVE); COLOR,URINE YELLOW (YELLOW); LEUKOCYTE ESTERASE ,URINE TRACE (NEGATIVE); NITRITE, URINE NEGATIVE (NEGATIVE); UGLUCOSE NEGATIVE (NEGATIVE)
[2020-09-15 16:58] LABS: RBC,URINE NONE SEEN /HPF (0-5); WBC,URINE 0-5 /HPF (0-5)
[2020-09-15 17:04] LABS: BARBITURATE, URINE NEGATIVE ng/ml (NEG <=200); BENZODIAZEPINE, URINE NEGATIVE ng/mL (NEG <=200); CANNABINOID, URINE NEGATIVE ng/mL (NEG <=50); COCAINE, URINE NEGATIVE ng/mL (NEG <=300); OPIATE, URINE NEGATIVE ng/mL (NEG <=2000); PHENCYCLIDINE SCREEN,URINE NEGATIVE ng/mL (NEG <=25)
[2020-09-15] MEDS ORDERED: ATA25 PO (17:17)
[2020-09-15 17:24] VITALS: BP 125/81
--- NOTE | 2020-09-15 17:26 | NUR ---
Patient discharged with v/s stable. Written and verbal after care instructions given and explained. Patient alert, oriented and verbalized understanding of instructions. Ambulatory with steady gait. All questions addressed prior to discharge. ID band removed. Patient advised to follow up with PMD. Rx of ATARAX HCL given. Patient educated on indication of medication including possible reaction and side effects. Opportunity to ask questions provided and answered. IV REMOVED, WNL
== END 2020-09-15 17:26 | disposition home or self-care (01) ==
LOC: MED 14:35
DX: R30.0 Dysuria (principal); F41.9 Anxiety disorder, unspecified; Z88.2 Allergy status to sulfonamides; Z88.8 Allergy status to other drugs, medicaments and biological substances; Z88.5 Allergy status to narcotic agent; Z79.899 Other long term (current) drug therapy
CPT/HCPCS: 36415; 80053; 80305; 81001; 81025; 85025; 87086; 96360; 99283; G0482; J7030

== ENCOUNTER 2022-03-03 09:08 | Day surgery (SDC) | payer OTHER ==
[~2022-03-03] VITALS: Ht 157.5 cm; Wt 67.6 kg
[2022-03-03 10:05] LABS: BASOPHILS # (AUTO) 0.1 K/uL (0.00-0.22); BASOPHILS % (AUTO) 0.9 % (0.0-2.0); EOSINOPHILS # (AUTO) 0.2 K/uL (0-0.4); EOSINOPHILS % (AUTO) 3.6 % (0.0-4.0); HEMATOCRIT 30.8 % (36-48); HEMOGLOBIN 10.6 g/dL (12.0-16.0); LYMPHOCYTES # (AUTO) 2.6 K/uL (2.5-16.5); LYMPHOCYTES % (AUTO) 40.6 % (20.5-51.1); MEAN CORPUSCULAR HEMOGLOBIN 29 pg (27-31); MEAN CORPUSCULAR HGB CONC 34 g/dL (33-37); MEAN CORPUSCULAR VOLUME 85.5 fL (80-94); MONOCYTES # (AUTO) 0.5 K/uL (0.8-1.0); MONOCYTES % (AUTO) 8.1 % (1.7-9.3); NEUTROPHILS % (AUTO) 46.8 % (42.2-75.2); PLATELET COUNT (AUTO) 285 K/uL (140-450); RED BLOOD CELL COUNT(AUTO) 3.61 MIL/uL (4.20-5.40); RED CELL DISTRIBUTION WIDTH 12.9 % (11.6-13.7); WHITE BLOOD COUNT (AUTO) 6.4 K/uL (4.8-10.8)
[2022-03-03] MEDS ORDERED: LIDOCAINE 2% 1000 MG/50 ML VIAL INJ ONE ×2 (10:44→10:51)
[2022-03-03] MEDS ORDERED: fentaNYL citrate 0.05 MG/ML VIAL ONE (10:53)
[2022-03-03 10:57] LABS: PROTHROMBIN TIME 10.1 secs (10.8-13.4)
[2022-03-03] MEDS ORDERED: fentaNYL citrate 0.05 MG/ML VIAL IVP ONE (11:10)
== END 2022-03-03 12:25 | disposition home or self-care (01) ==
LOC: MDS 09:08 → MMU 09:09 → MDS 12:25
PROVIDERS: ATTEND Internal Medicine Gastroenterology
DX: B19.20 Unspecified viral hepatitis C without hepatic coma (principal); F32.A Depression, unspecified; K59.00 Constipation, unspecified; K62.5 Hemorrhage of anus and rectum; F41.9 Anxiety disorder, unspecified; Z90.49 Acquired absence of other specified parts of digestive tract; Z98.890 Other specified postprocedural states; Z88.1 Allergy status to other antibiotic agents; Z88.8 Allergy status to other drugs, medicaments and biological substances
CPT/HCPCS: 36415; 47000; 76942; 85025; 85610; 85730; 87426; J2001; J3010; Q0092; 88307; 88313

== ENCOUNTER 2022-11-04 09:49 | Day surgery (SDC) | payer OTHER ==
[~2022-11-04] VITALS: Ht 162.6 cm; Wt 68.0 kg
[2022-11-04] MEDS ORDERED: fentaNYL citrate 0.05 MG/ML VIAL ONE (12:54)
[2022-11-04] MEDS ORDERED: LIDOCAINE 2% 100 MG/5 ML UJET TP ONE ×2 (12:54→15:10)
[2022-11-04] MEDS ORDERED: fentaNYL citrate 0.05 MG/ML VIAL IVP ONE (15:10)
== END 2022-11-04 15:29 | disposition home or self-care (01) ==
LOC: MDS 09:49 → MMU 09:52 → MDS 15:29
PROVIDERS: ATTEND Internal Medicine Gastroenterology
DX: Z12.11 Encounter for screening for malignant neoplasm of colon (principal); K64.9 Unspecified hemorrhoids; K62.89 Other specified diseases of anus and rectum; B18.2 Chronic viral hepatitis C; Z88.1 Allergy status to other antibiotic agents; Z88.5 Allergy status to narcotic agent; Z88.8 Allergy status to other drugs, medicaments and biological substances; Z79.899 Other long term (current) drug therapy
CPT/HCPCS: 45378; J3010

== ENCOUNTER 2023-04-16 09:09 | Emergency (ER) | payer OTHER ==
[~2023-04-16] VITALS: Ht 157.5 cm; Wt 65.8 kg
[2023-04-16 09:19] VITALS: BP 117/80; PULSE 96; RESP 14; TEMP 97.6; O2SAT 100
[2023-04-16] MEDS: diphenhydrAMINE 50 MG CAP PO ONE (10:52)
[2023-04-16] MEDS: LORazepam 1 MG TAB PO ONE (10:53)
[2023-04-16 12:11] VITALS: BP 125/73; PULSE 71; RESP 16; TEMP 98; O2SAT 99
== END 2023-04-16 12:10 | disposition home or self-care (01) ==
LOC: MED 09:09
DX: R21 Rash and other nonspecific skin eruption (principal); F41.9 Anxiety disorder, unspecified; Z88.2 Allergy status to sulfonamides; Z88.8 Allergy status to other drugs, medicaments and biological substances; Z79.899 Other long term (current) drug therapy; Z88.5 Allergy status to narcotic agent; Z79.1 Long term (current) use of non-steroidal anti-inflammatories (NSAID); Z91.040 Latex allergy status
CPT/HCPCS: 99283; Q0163

== ENCOUNTER 2023-07-11 10:59 | Emergency (ER) | payer OTHER ==
[~2023-07-11] VITALS: Ht 157.5 cm; Wt 66.3 kg
[2023-07-11 11:01] VITALS: BP 109/70; PULSE 72; RESP 18; TEMP 97.7; O2SAT 99
[2023-07-11] MEDS: LORazepam 2 MG/ML VIAL IVP ONE (12:20)
[2023-07-11 13:18] VITALS: BP 134/60; PULSE 88; RESP 20; TEMP 98.3; O2SAT 99
== END 2023-07-11 13:18 | disposition home or self-care (01) ==
LOC: MED 10:59
DX: F43.9 Reaction to severe stress, unspecified (principal); R56.9 Unspecified convulsions; H53.149 Visual discomfort, unspecified; F41.9 Anxiety disorder, unspecified; Z90.49 Acquired absence of other specified parts of digestive tract; F31.9 Bipolar disorder, unspecified; F17.210 Nicotine dependence, cigarettes, uncomplicated; Z98.890 Other specified postprocedural states; Z86.69 Personal history of other diseases of the nervous system and sense organs; Z79.1 Long term (current) use of non-steroidal anti-inflammatories (NSAID); Z79.899 Other long term (current) drug therapy; Z88.2 Allergy status to sulfonamides; Z88.5 Allergy status to narcotic agent; Z91.040 Latex allergy status; Z88.8 Allergy status to other drugs, medicaments and biological substances; Z88.6 Allergy status to analgesic agent
CPT/HCPCS: 81025; 96374; 99285; J2060